=== PATIENT | female | born 1950 | race Caucasian/White ===

== ENCOUNTER 2019-06-05 09:27 | Emergency (ER) | payer MEDICARE, SELFPAY ==
[2019-06-05 09:44] VITALS: BP 125/65; PULSE 76; RESP 16; TEMP 36.7; O2SAT 100
--- NOTE | 2019-06-05 10:08 | ED.WOUNDLAC ---
HPI - Wound/Laceration General Chief Complaint: Wound/Laceration Stated Complaint: dog bite Time Seen by Provider: 06/05/19 10:18 Source: patient and RN notes reviewed Mode of arrival: ambulatory Limitations: no limitations History of Present Illness HPI narrative: 69-year-old female presents for concern for dog bite on her left hand. Reports her dog bit her hand yesterday when she took a bone out of its mouth. She reports he is up-to-date on his vaccinations. Reports she cleaned the wound and used a Steri-Strip on the wound for closure. She reports mild tenderness, redness surrounding the wound. She denies any decrease in sensation or function of her hand or fingers. She reports she is not up-to-date on her tetanus Extremity Location: Left: hand Related Data Allergies Allergy/AdvReac Type Severity Reaction Status Date / Time atropine Allergy Intermediate LOW BLOOD Verified 01/02/19 18:03 PRESSURE, ANXIETY aspirin Allergy Unknown Verified 10/14/17 15:12 nitrofurantoin Allergy Unknown Verified 10/14/17 15:12 NSAIDS (Non-Steroidal Allergy Unknown Verified 10/14/17 15:11 Anti-Inflamma phenazopyridine Allergy Unknown Verified 05/19/12 14:00 NITROFURANTOIN MACROCRYSTAL Allergy Severe Anaphylactic Uncoded 01/02/19 18:03 Shock Review of Systems Review of Systems: Narrative: CONSTITUTIONAL: Denies malaise, chills, sweats, or fever. CARDIOVASCULAR: Denies chest pain, palpitationsa. RESPIRATORY: Denies dyspnea. SKIN: Reports 2 puncture wounds to her left hand, excluding digits. Reports mild redness and swelling to the hand and foot digits 2 and 3 MUSCULOSKELETAL: Denies any decrease in sensation or function of the left hand NEUROLOGIC: Denies numbness, weakness All systems reviewed & are unremarkable except as noted in HPI and below PMFSH Past Medical History Medical History (Updated 06/05/19 @ 10:28 by Liza Roman NP) H/O nephrolithotomy with removal of calculi Hypertension Syncope Type 2 diabetes mellitus Family History Family History (Updated 10/16/17 @ 08:38 by DOCTOR UNKNOWN) Mother Hypertension Cerebrovascular accident Father Family history of Parkinson's disease Family history of coronary artery disease Social History Social History (Updated 02/04/19 @ 11:30 by Elizabeth L. Fore, RECRUITING INTERN) Smoking status: Never smoker Alcohol intake: current Drinks per week: 2 Substance use: never Comments At time of signature, agree with nursing past medical, surgical, social and family history. There is no relevant family history pertinent to the presenting complaint Exam Narrative: Exam Narrative: GENERAL: Well-appearing, well-nourished, and in no acute distress. HEAD: Normocephalic, atraumatic. EYES: PERRLA, conjunctivae clear NECK: Supple. CHEST: Speaks in full sentences. No respiratory distress. HEART: Regular rate and rhythm. Normal and equal peripheral pulses. EXTREMITIES: Left hand and digits of hand have normal strength and sensation. 5/5 strength with digit flexion, extension. Range of motion normal. No clubbing, cyanosis noted. Normal digital cascade with flexion of fingers, median, ulnar and radial nerve intact. Normal sensation of each side of finger. Can perform 'okay' sign, 'cross over finger test of index and middle fingers' and 'thumbs up' sign. No scissoring. Normal thumb opposition. Good capillary refill and radial pulse. Distal capillary refill <3 seconds. SKIN: Warm, dry, no rash. Mild erythema, edema without induration, tenderness noted to the palmar and dorsal aspect of the hand beneath digits 2 and 3 edema and erythema extend slightly into digits 1 2 and 3. 2 puncture wounds noted to the dorsal aspect of the hand NEURO: Alert and oriented x3. PSYCH: Normal mood and affect Course Course Emergency Course: Patient is aware of diagnosis, understands and agrees to treatment plan. Anticipatory guidance given. Patient agrees to follow-up as directed and is aware
[2019-06-05] MEDS: TETANUS,DIPHTHERIA,AC PERTUSSIS ADULT (0.5 ML) BOOSTRIX IM (10:27)
== END 2019-06-05 10:49 | disposition home or self-care (01) ==
PROVIDERS: Emergency Provider Nurse Practitioner; PCP Internal Medicine
DX: S61.452A Open bite of left hand, initial encounter (principal); W54.0XXA Bitten by dog, initial encounter; I10 Essential (primary) hypertension; E11.9 Type 2 diabetes mellitus without complications; Z23 Encounter for immunization; Z79.4 Long term (current) use of insulin; Z96.41 Presence of insulin pump (external) (internal)
CPT/HCPCS: 90471; 90715; 99213; G0463

== ENCOUNTER 2019-10-24 07:46 | Outpatient (CLI) | payer MEDICARE, SELFPAY ==
[2019-10-24 08:25] LABS: Cholesterol 225 mg/dL (0-200); HDL Direct 48 mg/dL; Triglycerides 162 mg/dL (<150)
[2019-10-24 08:36] LABS: LDL Cholesterol Direct 136 mg/dL
[2019-10-24 08:38] LABS: Hemoglobin A1C 6.3 % (<5.7)
== END 2019-10-24 07:47 | disposition home or self-care (01) ==
LOC: ANHLAB 07:49
PROVIDERS: PCP Internal Medicine; Visit Provider Nurse Practitioner
DX: E11.9 Type 2 diabetes mellitus without complications (principal)
CPT/HCPCS: 36415; 80061; 83036

== ENCOUNTER 2019-11-15 15:57 | Outpatient (CLI) | payer MEDICARE, SELFPAY ==
--- NOTE | ~2019-11-15 | XR_ITS ---
EXAMINATION: XR thoracic spine 3V EXAM DATE: 11/15/2019 16:26 INDICATION: Left mid back pain. TECHNIQUE: Frontal and lateral projections of the thoracic spine as well as lateral swimmers projecti on of the upper thoracic spine for interpretation. There is no prior study for comparison. FINDINGS: Suspect mild lumbar dextroscoliosis. The vertebral bodies are aligned in the AP dimension. Vertebral body and disc heights are well-maintained. No endplate erosive change. Minimal lower thora cic disc disease. There are cholecystectomy clips. IMPRESSION: Minimal lower thoracic disc disease. Reviewed, dictated and finalized at location A.
== END 2019-11-15 15:58 | disposition home or self-care (01) ==
PROVIDERS: PCP Internal Medicine; Visit Provider Nurse Practitioner
DX: M54.9 Dorsalgia, unspecified (principal)
CPT/HCPCS: 72072

== ENCOUNTER 2020-01-23 07:52 | Outpatient (CLI) | payer MEDICARE, SELFPAY ==
[2020-01-23 08:41] LABS: Anion Gap 7 mmol/L (8-16); Blood Urea Nitrogen 20 mg/dL (7-17); Calcium 9.9 mg/dL (8.4-10.2); Carbon Dioxide 32 mmol/L (22-30); Chloride 106 mmol/L (98-107); Cholesterol 259 mg/dL (0-200); Estimated Glomerular Filt Rate > 60; Glucose 107 mg/dL (65-105); HDL Direct 54 mg/dL; Potassium 4.2 mmol/L (3.4-5.0); Sodium 145 mmol/L (137-145); Triglycerides 143 mg/dL (<150)
[2020-01-23 08:46] LABS: Hemoglobin A1C 6.1 % (<5.7)
[2020-01-23 08:52] LABS: LDL Cholesterol Direct 162 mg/dL
== END 2020-01-23 07:53 | disposition home or self-care (01) ==
PROVIDERS: PCP Internal Medicine; Visit Provider Clinical Nurse Specialist
DX: E78.5 Hyperlipidemia, unspecified (principal); E11.9 Type 2 diabetes mellitus without complications
CPT/HCPCS: 36415; 80048; 80061; 83036

== ENCOUNTER 2020-04-23 08:25 | Outpatient (CLI) | payer MEDICARE, SELFPAY ==
[2020-04-23 08:47] LABS: Basophils Absolute Auto 0.1 K/mm3 (0.0-0.1); Basophils Percent Auto 1.1 % (0.2-1.2); Eosinophils Absolute Auto 0.2 K/mm3 (0-0.3); Eosinophils Percent Auto 2.9 % (0-4.4); Hematocrit 42.7 % (37.0-47.0); Hemoglobin 14.8 g/dL (12.0-15.0); Immature Granulocyte Absolute 0.01 K/mm3 (0.00-0.031); Immature Granulocyte Percent A 0.2 % (0-0.5); Lymphocytes Percent Auto 32.4 % (18.3-44.2); Mean Corpuscular HGB Conc 34.7 g/dl (32-36); Mean Corpuscular Hemoglobin 31.1 pg (26-34); Mean Corpuscular Volume 89.7 fl (80-100); Mean Platelet Volume 9.4 fl (7.4-10.4); Monocytes Absolute Auto 0.4 K/mm3 (0.1-0.6); Monocytes Percent Auto 7.8 % (2.6-8.5); Neutrophils Absolute Auto 2.9 K/mm3 (1.3-6.7); Neutrophils Percent Auto 55.6 % (45.5-73.1); Platelet Count Result 217 k/mm3 (150-375); Red Blood Count 4.76 M/mm3 (4.2-5.4); Red Cell Distribution Width 11.9 % (11.5-14.5); White Blood Count 5.3 K/mm3 (4.5-10.0)
[2020-04-23 08:54] LABS: Hemoglobin A1C 6.2 % (<5.7)
[2020-04-23 08:57] LABS: Alanine Aminotransferase 18 U/L (4-35); Albumin Level 4.2 g/dL (3.5-5.1); Alkaline Phosphatase 79 U/L (38-126); Anion Gap 1 mmol/L (8-16); Aspartate Amino Transferase 24 U/L (14-36); Bilirubin,Total 0.8 mg/dL (0.2-1.3); Blood Urea Nitrogen 18 mg/dL (7-17); Calcium 9.5 mg/dL (8.4-10.2); Carbon Dioxide 34 mmol/L (22-30); Chloride 105 mmol/L (98-107); Cholesterol 256 mg/dL (0-200); Estimated Glomerular Filt Rate > 60; Glucose 144 mg/dL (65-105); HDL Direct 54 mg/dL; Sodium 140 mmol/L (137-145); Triglycerides 205 mg/dL (<150)
[2020-04-23 09:08] LABS: LDL Cholesterol Direct 158 mg/dL
== END 2020-04-23 08:26 | disposition home or self-care (01) ==
PROVIDERS: PCP Internal Medicine; Visit Provider Nurse Practitioner
DX: E11.9 Type 2 diabetes mellitus without complications (principal); I10 Essential (primary) hypertension; E78.5 Hyperlipidemia, unspecified
CPT/HCPCS: 36415; 80053; 80061; 83036; 85025

== ENCOUNTER 2020-06-19 13:01 | Outpatient (CLI) | payer MEDICARE, SELFPAY ==
[2020-06-19 14:23] LABS: Add Urine Microscopic? YES; Appearance Urine Cloudy (Clear); Bacteria Urine Trace /hpf; Bilirubin Urine Negative (Negative); Blood Urine Negative (Negative); Color Urine Yellow (Yellow); Glucose Urine UA 1+ mg/dL (Negative); Ketones Urine Negative (Negative); Leukocyte Esterase Ur 2+ LEU/UL (Negative); Mucus Urine Rare /lpf; Nitrate Urine Negative (Negative); Protein Urine 1+ mg/dL (Negative); Specific Grav Ur 1.019 (1.001-1.035); Squamous Epithelial Cell Urine Many /hpf (Few); Urobilinogen Urine Negative mg/dL (<2.0)
== END 2020-06-19 13:02 | disposition home or self-care (01) ==
LOC: ANHLAB 13:06
PROVIDERS: PCP Internal Medicine; Visit Provider Nurse Practitioner
DX: N39.0 Urinary tract infection, site not specified (principal); R31.9 Hematuria, unspecified
CPT/HCPCS: 81001

== ENCOUNTER → 2020-07-16 03:04 | Outpatient (CLI) | payer MEDICARE, SELFPAY ==
[2020-07-16 19:42] LABS: SARS-CoV-2 RNA PCR Negative
== END ==
PROVIDERS: PCP Internal Medicine; Visit Provider Internal Medicine Gastroenterology
DX: Z01.812 Encounter for preprocedural laboratory examination (principal); Z20.822 Contact with and (suspected) exposure to COVID-19
CPT/HCPCS: C9803; U0003; U0005

== ENCOUNTER 2020-07-19 01:14 | Day surgery (SDC) | payer MEDICARE, SELFPAY ==
[2020-07-10 13:40] VITALS: BMI 23.9
[2020-07-19 09:16] VITALS: BP 167/84; PULSE 80; RESP 16; TEMP 36.7; O2SAT 100
[2020-07-19] MEDS: LACTATED RINGERS 1,000 ML 150 ML IV CONT (09:24)
[2020-07-19 09:33] LABS: Glucose Point of Care 160 (65-105)
--- NOTE | 2020-07-19 10:15 | P.PNAN_ITS ---
Anes - Initial Pre Proc Eval Procedure: Operation Date: 07/19/20 10:30 Proposed Procedures p Screening Colonoscopy - Varun Duke MD Date/Time: 07/19/20 10:15 Surgeon: Varun Duke MD Pre Op Diagnosis: hx of colon polyps Patient Data Age: 70 Gender: F Height: 5 ft 4 in Weight: 62.7 kg Last Vital Signs Temp 98.1 F 07/19/20 09:16 Pulse 80 07/19/20 09:16 Resp 16 07/19/20 09:16 BP 167/84 H 07/19/20 09:16 Pulse Ox 100 07/19/20 09:16 Allergies Allergy/AdvReac Type Severity Reaction Status Date / Time nitrofurantoin Allergy Severe Anaphylactic Verified 07/19/20 09:15 Shock atropine Allergy Intermediate LOW BLOOD Verified 07/19/20 09:15 PRESSURE, ANXIETY aspirin Allergy Unknown Anaphylactic Verified 07/19/20 09:15 Shock NSAIDS (Non-Steroidal Allergy Unknown Unknown Verified 07/19/20 09:15 Anti-Inflamma phenazopyridine Allergy Unknown Unknown Verified 07/19/20 09:15 Home Medications Medication Instructions Recorded Confirmed Type irbesartan 75 mg tablet 37.5 mg PO DAILY #90 tablet 01/25/20 07/19/20 Rx insulin aspart U-100 100 unit/mL See Rx Instructions SUBCUT 03/20/20 07/19/20 Rx subcutaneous solution USEASDIRECTD #7 vial MDD 100 Laboratory Tests 07/19/20 09:23 POC Capillary Glucose 160 mg/dl H mg/dl (65-105) Patient hx anesthesia problems: none Family hx anesthesia problems: none PMFSH Past Medical History Medical History (Updated 07/19/20 @ 10:06 by Donald Pyle MD) H/O nephrolithotomy with removal of calculi Hyperlipidemia Hypertension IDDM (insulin dependent diabetes mellitus) Syncope Family History Family History (Updated 10/16/17 @ 08:38 by DOCTOR UNKNOWN) Mother Hypertension Cerebrovascular accident Father Family history of Parkinson's disease Family history of coronary artery disease Social History Social History (Updated 02/04/19 @ 11:30 by Elizabeth Aguila CMA) Smoking status: Never smoker Alcohol intake: current Drinks per week: 5 Substance use: never Substance use type: does not use Living arrangements: [facility] Spiritual care concerns: No Anes - Eval Final PreProcedure Day of Procedure 07/19/20 10:15 Patient weight: normal Heart: regular rate and rhythm Lungs: clear to auscultation Airway: Mallampati scale class II Neurological: alert and oriented Last oral intake: >/= 8 hours ASA classification: III Emergent: no Anesthetic plan: proceed Anesthesia type and monitoring: general GIVS and standard monitoring Informed Consent: The patient's anesthetic plan and its attendant risks and benefits were discussed with the patient/family/POA. Questions were solicited and answers provided to the satisfaction of the patient/family/POA.
--- NOTE | 2020-07-19 10:16 | PM.HPGS ---
History of Present Illness History of Present Illness Consent: Risks, benefits, and alternatives have been discussed and questions answered. Patient agrees to proceed with procedure. Chief complaint: hx of colon polyps Narrative: Lorenza Acuña is a 70 year old female Here for colon cancer screening. She had multiple adenomatous polyps removed 3 years ago Review of Systems Review of Systems: All systems reviewed & are unremarkable except as noted in HPI and below PMFSH Past Medical History Medical History H/O nephrolithotomy with removal of calculi Hyperlipidemia Hypertension IDDM (insulin dependent diabetes mellitus) Syncope Family History Family History Mother Hypertension Cerebrovascular accident Father Family history of Parkinson's disease Family history of coronary artery disease Social History Social History Smoking status: Never smoker Alcohol intake: current Drinks per week: 5 Substance use: never Substance use type: does not use Living arrangements: [place] [facility] care concerns: No Meds Home Medications and Allergies Home Medications Medication Instructions Recorded Confirmed Type irbesartan 75 mg tablet 37.5 mg PO DAILY #90 tablet 01/25/20 07/19/20 Rx insulin aspart U-100 100 unit/mL See Rx Instructions SUBCUT 03/20/20 07/19/20 Rx subcutaneous solution USEASDIRECTD #7 vial MDD 100 Allergies Allergy/AdvReac Type Severity Reaction Status Date / Time nitrofurantoin Allergy Severe Anaphylactic Verified 07/19/20 09:15 Shock atropine Allergy Intermediate LOW BLOOD Verified 07/19/20 09:15 PRESSURE, ANXIETY aspirin Allergy Unknown Anaphylactic Verified 07/19/20 09:15 Shock NSAIDS (Non-Steroidal Allergy Unknown Unknown Verified 07/19/20 09:15 Anti-Inflamma phenazopyridine Allergy Unknown Unknown Verified 07/19/20 09:15 Vital Signs Vital Signs - 24 hr 07/19/20 09:16 Temperature 36.7 C Pulse Rate 80 Respiratory Rate 16 Blood Pressure 167/84 H Pulse Oximetry 100 Exam Resp: Auscultation: clear to auscultation bilaterally Cardio: Rate: regular rate Rhythm: regular rhythm GI: GI Palp: Yes Soft to palpation and No Tenderness to palpation present (GI) Assessment and Plan Assessment and plan (1) Colon cancer screening: Code(s): Z12.11 - Encounter for screening for malignant neoplasm of colon Status: Acute Assessment and Plan: Colonoscopy with possible biopsy or polypectomy or cautery or injection of substances.
[2020-07-19] MEDS: SIMETHICONE ORAL SUSPENSION 20 MG/0.3 ML 30 ML BOTTLE 0.6 ML IRRIGATION (10:40)
[2020-07-19 10:50] VITALS: BP 101/57; PULSE 77; RESP 17; O2SAT 97
[2020-07-19 11:00] VITALS: BP 107/63; PULSE 68; RESP 15; O2SAT 98
[2020-07-19 11:10] VITALS: BP 135/69; PULSE 66; RESP 17; O2SAT 98
[2020-07-19 11:26] LABS: Glucose Point of Care 117 (65-105)
== END 2020-07-19 11:12 | disposition home or self-care (01) ==
PROVIDERS: PCP Internal Medicine; Visit Provider Internal Medicine Gastroenterology
PROC: 0DJD8ZZ Inspection of Lower Intestinal Tract, Via Natural or Artificial Opening Endoscopic (ICD-10-PCS; CPT 45378; principal; 2020-07-19 10:30)
DX: Z12.11 Encounter for screening for malignant neoplasm of colon (principal); D12.4 Benign neoplasm of descending colon; K57.30 Diverticulosis of large intestine without perforation or abscess without bleeding; E11.9 Type 2 diabetes mellitus without complications; I10 Essential (primary) hypertension; E78.5 Hyperlipidemia, unspecified; Z79.4 Long term (current) use of insulin
CPT/HCPCS: 45385; 82948; 88305; J2704; J7120

== ENCOUNTER 2020-07-23 08:16 | Outpatient (CLI) | payer MEDICARE, SELFPAY ==
[2020-07-23 09:13] LABS: Cholesterol 258 mg/dL (0-200); HDL Direct 48 mg/dL; Triglycerides 284 mg/dL (<150)
[2020-07-23 09:23] LABS: LDL Cholesterol Direct 146 mg/dL
[2020-07-23 10:22] LABS: Hemoglobin A1C 6.1 % (<5.7)
== END 2020-07-23 08:17 | disposition home or self-care (01) ==
PROVIDERS: PCP Internal Medicine; Visit Provider Nurse Practitioner
DX: E78.5 Hyperlipidemia, unspecified (principal); E11.9 Type 2 diabetes mellitus without complications
CPT/HCPCS: 36415; 80061; 83036

== ENCOUNTER 2020-09-14 07:33 | Outpatient (CLI) | payer MEDICARE, SELFPAY ==
--- NOTE | ~2020-09-14 | US_ITS ---
US abdomen limited INDICATION: Right upper quadrant pain PROCEDURE: Realtime right upper abdominal ultrasound. COMPARISON: No prior studies for comparison. FINDINGS: The pancreas is normal without focal mass or pancreatic ductal dilation. Liver echotexture is normal without focal mass or intrahepatic biliary dilatation. There is normal directional flow i n the portal vein. Gallbladder is surgically absent. Common bile duct measures 3 mm. IMPRESSION: 1: Unremarkable limited abdominal ultrasound postcholecystectomy. Reviewed, dictated and finalized at location B.
== END 2020-09-14 07:34 | disposition home or self-care (01) ==
LOC: ANHIMG 07:34
PROVIDERS: PCP Internal Medicine; Visit Provider Nurse Practitioner
DX: R10.11 Right upper quadrant pain (principal)
CPT/HCPCS: 76705

== ENCOUNTER 2020-09-18 14:45 | Outpatient (CLI) | payer MEDICARE, SELFPAY ==
--- NOTE | ~2020-09-18 | CT_ITS ---
EXAMINATION: CT abdomen pelvis wo con DATE: 09/18/2020 15:52 INDICATION: Intermittent right lower quadrant abdominal pain for 6 months TECHNIQUE: Computed tomography (CT) of the abdomen and pelvis was performed without intravenous contr ast. Automated exposure control and iterative reconstruction technique were employed. Exam dose: 370 .73 mGy-cm total exam DLP. COMPARISON: 09/14/2020 Limited abdominal ultrasound 01/27/2019 CT abdomen pelvis FINDINGS: The lung bases are clear. Normal heart size. No pericardial or pleural effusion. Status post cholecystectomy. No bile duct or pancreatic duct dilatation. The liver, spleen, pancreas, and adrenal glands are unremarkable. There is a pinpoint nonobstructing upper pole right renal calculus. No other urinary tract calculus i s evident. No ureteral calculus or hydroureteronephrosis. There is atherosclerotic calcification of the abdominal aorta. No intraperitoneal or retroperitoneal or pelvic mass lesion or lymphadenopathy or ascites. Status post hysterectomy. The urinary bladder is unremarkable. Normal appendix. Diverticulosis of the colon; no CT evidence of diverticulitis. No bowel obstruction or intraperitoneal free air. Very small fat-containing umbilical hernia. No suspicious osteolytic or osteoblastic lesions. IMPRESSION: Pinpoint nonobstructing upper pole right renal calculus Status post hysterectomy Status post cholecystectomy Diverticulosis of the colon; no CT evidence of diverticulitis Reviewed, dictated and finalized at Location [facility]. Reviewed, dictated and finalized at location A.
== END 2020-09-18 14:46 | disposition home or self-care (01) ==
PROVIDERS: PCP Internal Medicine; Visit Provider Nurse Practitioner
DX: K57.30 Diverticulosis of large intestine without perforation or abscess without bleeding (principal); N20.0 Calculus of kidney; Z90.49 Acquired absence of other specified parts of digestive tract
CPT/HCPCS: 74176

== ENCOUNTER 2020-10-19 19:37 | Emergency (ER) | payer MEDICARE, SELFPAY ==
--- NOTE | 2020-10-19 20:13 | ED.GENADULT ---
HPI - General Adult General Chief complaint: Allergic Reaction Stated complaint: Allergic Reaction Time Seen by Provider: 10/19/20 19:41 History of Present Illness HPI narrative: Bunny patient 70-year-old female presents emerged part with chief complaint of urticaria. Patient reports in the last 24 hours she noticed that she started having hives that popped up initially on her lip but then subsequently started having urticaria on her chest abdominal wall and on her legs. Patient states that the hives have become confluent and reports that they are very itchy. The patient reports she feels maybe a little bit of shortness of breath with this reports that she had similar symptoms many years ago when she took an antibiotic. Related Data Allergies Allergy/AdvReac Type Severity Reaction Status Date / Time nitrofurantoin Allergy Severe Anaphylactic Verified 07/19/20 09:15 Shock atropine Allergy Intermediate LOW BLOOD Verified 07/19/20 09:15 PRESSURE, ANXIETY aspirin Allergy Unknown Anaphylactic Verified 07/19/20 09:15 Shock NSAIDS (Non-Steroidal Allergy Unknown Unknown Verified 07/19/20 09:15 Anti-Inflamma phenazopyridine Allergy Unknown Unknown Verified 07/19/20 09:15 Review of Systems Review of Systems: Narrative: A 10 system review of systems was completed on the patient and is negative except for what is stated in the HPI. Nursing and ancillary documentation was reviewed. PMFSH Past Medical History Medical History H/O nephrolithotomy with removal of calculi Hyperlipidemia Hypertension IDDM (insulin dependent diabetes mellitus) Syncope Surgical History Surgical History Hx of cholecystectomy Family History Family History Mother Hypertension Cerebrovascular accident Father Family history of Parkinson's disease Family history of coronary artery disease Social History Social History Smoking status: Never smoker Alcohol intake: current Drinks per week: 5 Substance use: never Substance use type: does not use Spiritual care concerns: No Exam Narrative: Exam Narrative: GENERAL: Well-appearing, well-nourished, and in no acute distress. HEAD: Normocephalic, atraumatic. EYES: PERRLA and EOMI. ENT: Nares clear, no rhinorrhea or epistaxis. Mucous membranes moist. NECK: Supple. CHEST: Clear to auscultation. No respiratory distress. HEART: Regular rate and rhythm. No murmur heard. Normal peripheral pulses. ABDOMEN: Soft, nontender, nondistended, normal active bowel sounds. EXTREMITIES: Normal range of motion. No edema. SKIN: Warm, dry, there is urticaria present on the abdominal wall, on the lower extremities. NEURO: No focal deficits. Alert and oriented x3. PSYCH: Normal mood and affect. Course Course Emergency Course: Patient is feeling much better at this time Vital Signs Vital signs: Vital Signs Temperature 36.6 C 10/19/20 20:14 Pulse Rate 85 10/19/20 20:14 Respiratory Rate 18 10/19/20 20:14 Blood Pressure 149/79 H 10/19/20 20:14 Pulse Oximetry 97 10/19/20 20:14 Temperature 36.6 C 10/19/20 20:14 Pulse Rate 85 10/19/20 20:14 Respiratory Rate 18 10/19/20 20:14 Blood Pressure 149/79 H 10/19/20 20:14 Pulse Oximetry 97 10/19/20 20:14 Medical Decision Making Vital Signs Vital Signs: Vital Signs Temperature 36.6 C 10/19/20 20:14 Pulse Rate 85 10/19/20 20:14 Respiratory Rate 18 10/19/20 20:14 Blood Pressure 149/79 H 10/19/20 20:14 Pulse Oximetry 97 10/19/20 20:14 Temperature 36.6 C 10/19/20 20:14 Pulse Rate 85 10/19/20 20:14 Respiratory Rate 18 10/19/20 20:14 Blood Pressure 149/79 H 10/19/20 20:14 Pulse Oximetry 97 10/19/20 20:14 Discharge Plan D
[2020-10-19 20:14] VITALS: BP 149/79; PULSE 85; RESP 18; TEMP 36.6; O2SAT 97
[2020-10-19] MEDS: FAMOTIDINE 20 MG/2 ML VIAL IV PUSH (20:19)
[2020-10-19] MEDS: diphenhydrAMINE HCl INJ 50 MG/ML VIAL IV PUSH (20:19)
[2020-10-19] MEDS: methylPREDNISolone SOD SUCC 125 MG VIAL IV PUSH (20:19)
[2020-10-19 21:29] VITALS: BP 125/58; PULSE 69; RESP 18; O2SAT 98
== END 2020-10-19 21:45 | disposition home or self-care (01) ==
PROVIDERS: Emergency Provider Emergency Medicine; PCP Internal Medicine
DX: T78.40XA Allergy, unspecified, initial encounter (principal); E78.5 Hyperlipidemia, unspecified; I10 Essential (primary) hypertension; E11.9 Type 2 diabetes mellitus without complications; Z87.442 Personal history of urinary calculi; Z79.4 Long term (current) use of insulin
CPT/HCPCS: 96374; 96375; 99284; J1200; J2930

== ENCOUNTER 2020-10-22 10:49 | Outpatient (CLI) | payer MEDICARE, SELFPAY ==
[2020-10-22 11:30] LABS: Cholesterol 308 mg/dL (0-200); HDL Direct 71 mg/dL; Triglycerides 170 mg/dL (<150)
[2020-10-22 11:43] LABS: LDL Cholesterol Direct 180 mg/dL
[2020-10-22 12:09] LABS: Hemoglobin A1C 6.5 % (<5.7)
== END 2020-10-22 10:50 | disposition home or self-care (01) ==
LOC: ANHLAB 10:52
PROVIDERS: PCP Internal Medicine; Visit Provider Nurse Practitioner
DX: E11.9 Type 2 diabetes mellitus without complications (principal); I10 Essential (primary) hypertension
CPT/HCPCS: 36415; 80061; 83036

== ENCOUNTER 2020-12-15 10:16 | Emergency (ER) | payer MEDICARE, SELFPAY ==
[2020-12-15 10:43] VITALS: BP 169/78; PULSE 79; RESP 16; TEMP 36.4; O2SAT 99
--- NOTE | 2020-12-15 10:50 | ED.FEMALEGU ---
HPI - Female Genitourinary General Chief complaint: Urogenital-Female Stated complaint: uti symptoms Source: patient and RN notes reviewed Limitations: no limitations History of Present Illness HPI Narrative: The patient, is on several meds including insulin, presents with urinary symptoms. Patient states she has a shorter, couple day history of urinary frequency, urgency and dysuria. No blood fever, low back pain, vomiting, vaginal discharge. Symptoms are mild worse with micturition Related Data Allergies Allergy/AdvReac Type Severity Reaction Status Date / Time nitrofurantoin Allergy Severe Anaphylactic Verified 12/15/20 10:44 Shock atropine Allergy Intermediate LOW BLOOD Verified 12/15/20 10:44 PRESSURE, ANXIETY aspirin Allergy Unknown Anaphylactic Verified 12/15/20 10:44 Shock NSAIDS (Non-Steroidal Allergy Unknown Unknown Verified 12/15/20 10:44 Anti-Inflamma phenazopyridine Allergy Unknown Unknown Verified 12/15/20 10:44 Review of Systems Review of Systems: General/Constitutional: No weight loss,fever Eyes: N0: Redness,discharge Ears/Nose/Throat: No: Epistaxis,ear discharge Respiratory: Denies: Hemoptysis Gastrointestinal: No Vomiting, Bleeding-rectal Skin: No Lumps, eruption Neurologic: No Focal Weakness,Sz Hematologic: Denies: Petechiae/Purpura Psychiatric: No: Suicida ideationl All Other Systems: Reviewed and Negative PMF Past Medical History Medical History H/O nephrolithotomy with removal of calculi Hyperlipidemia Hypertension IDDM (insulin dependent diabetes mellitus) Syncope Surgical History Surgical History Hx of cholecystectomy Family History Family History Mother Hypertension Cerebrovascular accident Father Family history of Parkinson's disease Family history of coronary artery disease Social History Social History Smoking status: Never smoker Alcohol intake: current Drinks per week: 5 Substance use: never Substance use type: does not use Spiritual care concerns: No Comments At time of signature, agree with nursing past medical, surgical, social and family history. There is no relevant family history pertinent to the presenting complaint Exam Narrative: General Appearance: Well appearing, No distress EYE: PERRLA, Conjunctiva clear Ears: External ear normal Nose: Normal nose Mouth/Throat: Normal appearing, Normal lips Neck: Supple Respiratory: Airway patent, No respiratory distress Cardiovascular: RRR Abdomen: Soft, Non-tender, Musculoskeletal: Full ROM Skin: Warm, Dry Neurological: A&O x3, CN II-X intact Psychiatric: Normal mood, Normal affect Course Vital Signs Vital signs: Vital Signs Temperature 97.6 F 12/15/20 10:43 Pulse Rate 79 12/15/20 10:43 Respiratory Rate 16 12/15/20 10:43 Blood Pressure 169/78 H 12/15/20 10:43 Pulse Oximetry 99 12/15/20 10:43 Temperature 97.6 F 12/15/20 10:43 Pulse Rate 79 12/15/20 10:43 Respiratory Rate 16 12/15/20 10:43 Blood Pressure 169/78 H 12/15/20 10:43 Pulse Oximetry 99 12/15/20 10:43 MDM - Female Genitourinary Lab Data Labs: Urine Glucose Negative Reference Range: Negative Urine Bilirubin Negative Reference Range: Negative Urine Ketone Negative Reference Range: Negative Urine Specific [place] 1.025 Reference Range:1.001-1.035 Urine Blood Trace Reference Range: Negativ
== END 2020-12-15 11:01 | disposition home or self-care (01) ==
PROVIDERS: Emergency Provider Emergency Medicine; PCP Internal Medicine
DX: N30.00 Acute cystitis without hematuria (principal); E78.5 Hyperlipidemia, unspecified; I10 Essential (primary) hypertension; E11.9 Type 2 diabetes mellitus without complications; Z79.4 Long term (current) use of insulin
CPT/HCPCS: 81003; 87077; 87086; 87186; 99213; G0463

== ENCOUNTER 2021-01-23 07:02 | Outpatient (CLI) | payer MEDICARE, SELFPAY ==
[2021-01-23 07:54] LABS: Basophils Absolute Auto 0.1 K/mm3 (0.0-0.1); Basophils Percent Auto 1.3 % (0.2-1.2); Eosinophils Absolute Auto 0.2 K/mm3 (0-0.3); Eosinophils Percent Auto 2.4 % (0-4.4); Hemoglobin 14.7 g/dL (12.0-15.0); Immature Granulocyte Absolute 0.01 K/mm3 (0.00-0.031); Immature Granulocyte Percent A 0.2 % (0-0.5); Lymphocytes Percent Auto 33.7 % (18.3-44.2); Mean Corpuscular HGB Conc 34.2 g/dl (32-36); Mean Corpuscular Hemoglobin 31.7 pg (26-34); Mean Corpuscular Volume 92.7 fl (80-100); Mean Platelet Volume 9.6 fl (7.4-10.4); Monocytes Absolute Auto 0.5 K/mm3 (0.1-0.6); Monocytes Percent Auto 8.3 % (2.6-8.5); Neutrophils Absolute Auto 3.4 K/mm3 (1.3-6.7); Neutrophils Percent Auto 54.1 % (45.5-73.1); Platelet Count Result 238 k/mm3 (150-375); Red Blood Count 4.64 M/mm3 (4.2-5.4); Red Cell Distribution Width 11.8 % (11.5-14.5); White Blood Count 6.2 K/mm3 (4.5-10.0)
[2021-01-23 08:04] LABS: Anion Gap 6 mmol/L (8-16); Blood Urea Nitrogen 17 mg/dL (7-17); Calcium 9.7 mg/dL (8.4-10.2); Carbon Dioxide 29 mmol/L (22-30); Chloride 105 mmol/L (98-107); Cholesterol 284 mg/dL (0-200); Estimated Glomerular Filt Rate > 60; Glucose 175 mg/dL (65-110); HDL Direct 50 mg/dL; Potassium 4.3 mmol/L (3.4-5.0); Sodium 140 mmol/L (137-145); Triglycerides 202 mg/dL (<150)
[2021-01-23 08:10] LABS: Hemoglobin A1C 6.1 % (<5.7)
[2021-01-23 08:15] LABS: LDL Cholesterol Direct 168 mg/dL
[2021-01-23 12:41] LABS: Creatinine Urine 106.6 mg/dL
[2021-01-23 13:04] LABS: MALB Creatinine Ratio < 5.6 mg/g (0-30); Microalbumin Urine Random < 6.0 mg/L (0-16.7)
== END 2021-01-23 07:03 | disposition home or self-care (01) ==
LOC: ANHLAB 07:07
PROVIDERS: PCP Internal Medicine; Visit Provider Nurse Practitioner
DX: E11.9 Type 2 diabetes mellitus without complications (principal); R00.0 Tachycardia, unspecified
CPT/HCPCS: 36415; 80048; 80061; 82043; 83036; 84443; 85025

== ENCOUNTER 2021-04-26 07:51 | Outpatient (CLI) | payer MEDICARE, SELFPAY ==
[2021-04-26 09:36] LABS: Hemoglobin A1C 6.3 % (<5.7)
== END 2021-04-26 07:52 | disposition home or self-care (01) ==
LOC: ANHLAB 07:53
PROVIDERS: PCP Internal Medicine; Visit Provider Nurse Practitioner
DX: E11.9 Type 2 diabetes mellitus without complications (principal)
CPT/HCPCS: 36415; 83036

== ENCOUNTER 2021-07-30 07:14 | Outpatient (CLI) | payer MEDICARE, SELFPAY ==
[2021-07-30 07:56] LABS: Cholesterol 227 mg/dL (0-200); HDL Direct 53 mg/dL; Triglycerides 142 mg/dL (<150)
[2021-07-30 08:07] LABS: LDL Cholesterol Direct 125 mg/dL
[2021-08-01 09:42] LABS: Anion Gap 5 mmol/L (8-16); Blood Urea Nitrogen 19 mg/dL (7-17); Carbon Dioxide 30 mmol/L (22-30); Chloride 107 mmol/L (98-107); Potassium 3.9 mmol/L (3.4-5.0); Sodium 142 mmol/L (137-145)
[2021-08-01 09:43] LABS: Calcium 8.9 mg/dL (8.4-10.2); Estimated Glomerular Filt Rate > 60; Glucose 89 mg/dL (65-110)
== END 2021-07-30 07:15 | disposition home or self-care (01) ==
LOC: ANHLAB 07:19
PROVIDERS: PCP Internal Medicine; Visit Provider Nurse Practitioner
DX: E11.9 Type 2 diabetes mellitus without complications (principal); I10 Essential (primary) hypertension
CPT/HCPCS: 36415; 80048; 80061

== ENCOUNTER 2021-08-06 07:53 | Outpatient (CLI) | payer MEDICARE, SELFPAY ==
[2021-08-06 08:23] LABS: Hemoglobin A1C 6.1 % (<5.7)
== END 2021-08-06 07:54 | disposition home or self-care (01) ==
LOC: ANHLAB 07:56
PROVIDERS: PCP Internal Medicine; Visit Provider Nurse Practitioner
DX: E11.9 Type 2 diabetes mellitus without complications (principal)
CPT/HCPCS: 36415; 83036

== ENCOUNTER 2021-08-17 10:04 | Observation (INO) | payer MEDICARE, SELFPAY ==
[2021-08-17] VITALS (41 sets, daily range): BP systolic 118–175; BP diastolic 64–107; PULSE 66–94; RESP 13–29; TEMP 36.4–37.2; O2SAT 86–100
--- NOTE | ~2021-08-17 | MR_ITS ---
EXAMINATION: MR cervical spine wo con DATE: 08/18/2021 09:39 INDICATION: Left neck shoulder and elbow pain. TECHNIQUE: Magnetic resonance imaging (MRI) of the cervical spine was performed without intravenous c ontrast. Sequences included sagittal T2-weighted FSE, sagittal T2-weighted FS FSE, sagittal T1-weight ed FSE, axial MERGE, and axial T2-weighted FSE. COMPARISON: CT cervical spine 08/17/2021. FINDINGS: Craniocervical association and atlantoaxial joint are intact. Normal alignment. Vertebral b alayna heights are maintained. Multilevel degenerative disc disease, severe at C3-4 and moderate at C5-6 . The cord signal is normal. The following disc levels are specifically discussed: C2-C3: The disc does not extend beyond the endplate margin. There is mild uncovertebral joint osteoar thritis. There is mild facet joint osteoarthritis. There is no neural foraminal stenosis. There is no central canal stenosis. C3-C4: 2 mm broad-based left paracentral protrusion. There is moderate left and mild right uncoverteb ral joint osteoarthritis. There is moderate left and mild right facet joint osteoarthritis. There is severe left neural foraminal stenosis. There is no central canal stenosis. C4-C5: Mild diffuse bulge. There is no uncovertebral joint osteoarthritis. There is mild facet joint osteoarthritis. There is no neural foraminal stenosis. There is no central canal stenosis. C5-C6: Moderate diffuse bulge with right paracentral prominence. There is moderate uncovertebral join t osteoarthritis. There is moderate facet joint osteoarthritis. There is moderate bilateral neural fo raminal stenosis. There is no central canal stenosis. C6-C7: Moderate diffuse bulge with a 4 mm central extrusion that contacts the anterior surface of the cord, extending 10 mm inferiorly along the posterior aspect of the C7 vertebral body. There is mild uncovertebral joint osteoarthritis. There is moderate left and mild right facet joint osteoarthritis. There is no neural foraminal stenosis. There is mild central canal stenosis. C7-T1: The disc does not extend beyond the endplate margin. There is mild uncovertebral joint osteoar thritis. There is mild facet joint osteoarthritis. There is no neural foraminal stenosis. There is no central canal stenosis. IMPRESSION: 1. 4 x 10 mm C6-7 disc extrusion which contacts the anterior surface of the cord. 2. Severe left C3-4 neural foraminal stenosis. Moderate bilateral C5-6 and left-sided C3-4 and C6-7 n eural foraminal narrowing. 3. Multilevel degenerative disc disease, degenerative uncovertebral joint changes, and facet arthropa thy. Reviewed, dictated and finalized at location K. IMPRESSION: 1. 4 x 10 mm C6-7 disc extrusion which contacts the anterior surface of the cor d. 2. Severe left C3-4 neural foraminal stenosis. Moderate bilateral C5-6 and left -sided C3-4 and C6-7 neural foraminal narrowing. 3. Multilevel degenerative disc disease, degenerative uncovertebral joint sands es, and facet arthropathy.
--- NOTE | ~2021-08-17 | CT_ITS ---
EXAMINATION: CT cervical spine wo con DATE: 08/17/2021 11:51 INDICATION: Left posterior neck pain. Left arm and shoulder tingling. TECHNIQUE: Computed tomography (CT) of the cervical spine was performed without intravenous contrast. Automated exposure control and iterative reconstruction technique were employed. Exam dose: 165.84 mGy-cm total exam DLP. COMPARISON: None FINDINGS: There is mild reversal cervical curvature. There is mild dextroscoliosis. C1 and C2 are normally aligned and the odontoid process is intact. Moderately severe degenerative disc disease at C3-4 and C5-6.. There is degenerative change at the apophyseal and uncovertebral joint, the uncovertebral joint spurr ing, the uncovertebral joint spurring most prominent on the left at C3-4 and C5-6. No fracture or dislocation or locked facet or prevertebral soft tissue swelling. IMPRESSION: Cervical spondylosis Reviewed, dictated and finalized at [facility]. Reviewed, dictated and finalized at location A. IMPRESSION: Cervical spondylosis
--- NOTE | ~2021-08-17 | XR_ITS ---
XR chest 2V DATE: 08/17/2021 10:21 INDICATION: Intermittent left-sided chest pain for one week, radiating to arm TECHNIQUE: PA and lateral views COMPARISON: 01/02/2019 AP and lateral chest FINDINGS: Normal heart size. Aortic arch calcification. No hilar or mediastinal enlargement. No pulmonary infiltrate or consolidation, pleural effusion or pulmonary vascular congestion or pneumo thorax. Thoracic and lumbar scoliosis. Diffuse osteopenia. Status post cholecystectomy. IMPRESSION: No active cardiopulmonary disease Aortic atherosclerosis Status post cholecystectomy Reviewed, dictated and finalized at location A.
--- NOTE | 2021-08-17 10:05 | ECG_ITS ---
Measurements Intervals [place] Rate: 90 P: 52 CO: 151 QRS: -14 QRSD: 101 T: 82 QT: 345 QTc: 422 Interpretive Statements SINUS RHYTHM VENTRICULAR PREMATURE COMPLEX POSSIBLE LEFT ATRIAL ENLARGEMENT DELAYED PRECORDIAL R/S TRANSITION INFERIOR INFARCT, AGE INDETERMINATE NONSPECIFIC T-WAVE ABNORMALITY- HIGH LATERAL LEADS BORDERLINE ECG Electronically Signed On 08-17-2021 15:05:59 CDT by Roni Sanz D.O.
[2021-08-17 10:42] LABS: Basophils Absolute Auto 0.1 K/mm3 (0.0-0.1); Basophils Percent Auto 1.1 % (0.2-1.2); Eosinophils Absolute Auto 0.1 K/mm3 (0-0.3); Eosinophils Percent Auto 2.3 % (0-4.4); Hematocrit 43.5 % (37.0-47.0); Immature Granulocyte Absolute 0.02 K/mm3 (0.00-0.031); Immature Granulocyte Percent A 0.3 % (0-0.5); Lymphocytes Absolute Auto 1.36 K/mm3 (0.9-3.2); Lymphocytes Percent Auto 21.9 % (18.3-44.2); Mean Corpuscular HGB Conc 34.5 g/dl (32-36); Mean Corpuscular Hemoglobin 32.1 pg (26-34); Mean Corpuscular Volume 92.9 fl (80-100); Mean Platelet Volume 9.5 fl (7.4-10.4); Monocytes Absolute Auto 0.6 K/mm3 (0.1-0.6); Monocytes Percent Auto 10.1 % (2.6-8.5); Neutrophils Percent Auto 64.3 % (45.5-73.1); Platelet Count Result 202 k/mm3 (150-375); Red Blood Count 4.68 M/mm3 (4.2-5.4); White Blood Count 6.2 K/mm3 (4.5-10.0)
[2021-08-17 10:53] LABS: Alanine Aminotransferase 23 U/L (6-35); Albumin Level 4.9 g/dL (3.5-5.1); Alkaline Phosphatase 97 U/L (38-126); Anion Gap 7 mmol/L (8-16); Aspartate Amino Transferase 27 U/L (14-36); Bilirubin,Total 1.1 mg/dL (0.2-1.3); Blood Urea Nitrogen 16 mg/dL (7-17); Calcium 9.6 mg/dL (8.4-10.2); Carbon Dioxide 28 mmol/L (22-30); Chloride 106 mmol/L (98-107); Estimated CRCL calculation 48 ml/min; Estimated Glomerular Filt Rate > 60; Glucose 210 mg/dL (65-110); Lipase 109 U/L (23-300); Potassium 4.3 mmol/L (3.4-5.0); Sodium 141 mmol/L (137-145)
[2021-08-17 10:56] LABS: Prothrombin Time 12.4 Seconds (11.1-14.7)
[2021-08-17 10:57] LABS: Partial Thromboplastin Time 30.1 SECONDS (22.3-36.8)
[2021-08-17 11:04] LABS: Troponin I < 0.012 ng/mL (0.000-0.034)
--- NOTE | 2021-08-17 11:17 | ED.CHESTPAIN ---
HPI - Chest Pain General Chief Complaint: Chest Pain Stated Complaint: chest pain Time Seen by Provider: 08/17/21 11:06 History of Present Illness HPI narrative: pt says for the last week left arm tingling adn pain starting around elbow up to neck with some neck pain no cp/sob but says has to take a deep breath at times with it and has at rest no nv and sweating at night but wiht her menopause had before this, last stresstest yrs ago Risk Factors Coronary artery disease risk factors: diabetes, hyperlipidemia and hypertension Related Data Allergies Allergy/AdvReac Type Severity Reaction Status Date / Time nitrofurantoin Allergy Severe Anaphylactic Verified 08/17/21 11:14 Shock atropine Allergy Intermediate LOW BLOOD Verified 08/17/21 11:14 PRESSURE, ANXIETY aspirin Allergy Unknown Anaphylactic Verified 08/17/21 11:14 Shock NSAIDS (Non-Steroidal Allergy Unknown Unknown Verified 08/17/21 11:14 Anti-Inflamma phenazopyridine Allergy Unknown Unknown Verified 08/17/21 11:14 Review of Systems Review of Systems: CONSTITUTIONAL: Denies fever, chills, or sweats. EYES: Denies visual changes, redness, or discharge. ENT: Denies rhinorrhea, congestion, sore throat, or otalgia. CARDIOVASCULAR: Denies chest pain, palpitations, or edema. RESPIRATORY: Denies cough or dyspnea. GASTROINTESTINAL: Denies abdominal pain, nausea, vomiting, or diarrhea. GENITOURINARY: Denies dysuria or hematuria. SKIN: Denies rash or itching. MUSCULOSKELETAL: Denies back pain, but has left arm tingling and discomfort neck pain NEUROLOGIC: Denies headache, numbness, or weakness. PSYCHIATRIC: Denies anxiety or depression. [facility] Past Medical History Medical History H/O nephrolithotomy with removal of calculi Hyperlipidemia Hypertension IDDM (insulin dependent diabetes mellitus) Syncope Surgical History Surgical History Hx of cholecystectomy Family History Family History Mother Hypertension Cerebrovascular accident Father Family history of Parkinson's disease Family history of coronary artery disease Social History Social History Social History: caffeine-1/2 daily Smoking status: Never smoker Alcohol intake: current Drinks per week: 5 Alcohol use details: hard drinks Substance use: never Substance use type: does not use Spiritual care concerns: No Exam Narrative: APPEARANCE: Well appearing, no pain in distress, well-nourished. Head normocephalic atraumtaic. EYES: PERRLA/EOMI, conjunctivae very clear. NOSE: Normal no drainage EARS:TMS clear Angelia Ramsey, with good light reflex. THROAT: Pharynx clear, no exudate. NECK: Supple. No adenopathy, no masses. RESPIRATORY: Airway patent, repsirations nonlabored. Clear to auscultation bilaterally, no rales, rhonchi, wheezing. CARDIOVASCULAR: Regular rate and rhythm without murmurs rubs or gallops. ABDOMINAL: Soft, nontender, nondistended, no hepatosplenomegally MUSCULOSKELETAl: Moves all extremities. Strenght/ROM intact, No edema, No calf tenderness. NEURO: Alert. Cranial nerves II through XII intact. Good gait. Good coordination no left arm neuro/vascular changes with rom no swelling and cannot reproduce symptoms with rom/palpatin neck as well SKIN:: Warm, dry. Normal Color PSYCHIATRIC: Normal affect/mood, normal interaction with parents. Course Course Emergency Course: updated pt at 1229 pt agrees to stay aware of risks adn heart score calling hospital[facility] for admission Vital Signs Vital signs: Vital Signs Temperature 36.4 C 08/17/21 10:29 Pulse Rate 92 08/17/21 10:29 Respiratory Rate 16 08/17/21 10:29 Blood Pressure 152/68 H 08/17/21 10:29 Pulse Oximetry 99 08/17/21 10:29 Temperature 36.4 C 08/17/21 10:29 Pulse Rate 82 08/17/21 11
[2021-08-17 12:36] LABS: Glucose Point of Care 119 mg/dl (65-105)
[2021-08-17] MEDS: MORPHINE SULFATE (*CRX) 4 MG/ML INJ 2 MG IV PUSH (13:00)
[2021-08-17 13:05] LABS: Troponin I < 0.012 ng/mL (0.000-0.034)
--- NOTE | 2021-08-17 16:00 | PM.IMHP ---
H&P: HPI History of Present Illness Date/Time: 08/17/21 16:00 Chief Complaint: Left arm pain. Narrative: This is a very pleasant 71-year-old female with insulin-dependent diabetes, hypertension, and dyslipidemia who presented to the ED from home for evaluation of left arm pain. Over the last couple of weeks she has developed an intermittent ?prickling? pain which seems to start in the left elbow. Many times the pain radiates to the left shoulder and somewhat to the left side of the neck. It seems to be worse at night and it has been self-limiting however it has been occurring more often and lasting longer over the past 1 week. She lies on her right side when sleeping and she does not believe that her left arm is crooked or impinged while asleep. She is unaware of any significant aggravating factors. She denies history of neuropathy and she has cannot recall any recent injuries that may have caused the symptoms. She denies numbness in the left arm and the prickling pain does not extend past the proximal forearm. She is quite active (walks frequently with her friends, enjoys water volleyball) and she has never had exertional chest pain or shortness of breath. It is my understanding that an EKG and troponins were ordered due to concerns for an atypical presentation for acute coronary syndrome and we were asked to admit her in this setting. She has no known history of coronary artery disease. A cardiac catheterization done many years ago was unremarkable, per patient report. Review of Systems Review of Systems: Twelve systems were reviewed. No syncope or presyncope. No cold or flu symptoms. She denies chest pain, pleuritic pain, palpitations, orthopnea, paroxysmal nocturnal dyspnea, and edema. No nausea or vomiting. Doses typically between 80 and 110. Denies nephropathy, neuropathy, and retinopathy. Recently she has been having more frequent hot flashes which come on suddenly and dissipate just as quickly. She has not been started on any new medications. Weight has remained stable. No history of malignancy Or thyroid disease. Except as documented, all other systems were reviewed and are negative. [facility] Past Medical History Medical History (Updated 08/17/21 @ 21:57 by Gita Lima PA-C) Depression Hyperlipidemia Hypertension Insulin dependent type 2 diabetes mellitus Kidney stones Shingles Squamous cell carcinoma skin of arm Syncope Surgical History Surgical History (Updated 08/17/21 @ 21:45 by Gita Lima PA-C) History of 3 sections History of abdominoplasty History of benign breast biopsy History of cardiac catheterization (2014) Unremarkable per patient report. History of cataract extraction with lens replacement History of cholecystectomy History of cystoscopy History of hysterectomy History of nephrolithotomy with removal of calculi History of removal of ureteral stent History of squamous cell carcinoma excision Neck. History of tonsillectomy Status post trigger finger release Family History Family History Mother Hypertension Cerebrovascular accident Father Family history of Parkinson's disease Family history of coronary artery disease Social History Social History (Updated 08/17/21 @ 21:46 by Gita Lima PA-C) Social History: Surrogate decision maker: Amaya Acuña, daughter. Code status: Full code. Smoking status: Never smoker Second hand tobacco smoke exposure: No Alcohol intake: current Drinks per week: 5 Alcohol use details: Mixed drinks or wine. Substance use: never Substance use type: does not use Additional living arrangements comments: . Three children. Independent living at [place]. 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 Spiritual care concerns: No Meds Home Medications and Allergies Home Medications Medication Instructions Recorde
--- NOTE | 2021-08-17 16:06 | ADMGEN ---
This patient, Lorenza Acuña, was admitted to IMU Room 209-01 at 1550. Patient/family oriented to hospital policies and general routines including ID bracelet, bed and alarms, visiting hours, pain management, procedures, bathroom and other care routines, personal items, smoking policy, room service/diet, and visiting hours. Information on how to activate the Rapid Response Team has been discussed. Patient/Family are encouraged to report perceived risks to care and to ask questions if they do not understand what they are told or what they should do.
[2021-08-17 16:16] LABS: Glucose Point of Care 81 mg/dl (65-105)
[2021-08-17 16:31] LABS: Troponin I < 0.012 ng/mL (0.000-0.034)
[2021-08-17] MEDS: ACETAMINOPHEN 325 MG TABLET 650 MG PO (20:00)
[2021-08-17 21:09] LABS: Glucose Point of Care 148 mg/dl (65-105)
--- NOTE | 2021-08-17 22:43 | PC.NURSE ---
Call placed and message left for Project Architect. Patient states she will turn insulin pump off at this time due to not having all of her supplies available.
[2021-08-18] VITALS: BP 141/71; PULSE 79; PULSE 83; RESP 14; TEMP 36.2; O2SAT 98
[2021-08-18 02:00] VITALS: PULSE 78
[2021-08-18] MEDS: ACETAMINOPHEN 325 MG TABLET 650 MG PO (02:40)
[2021-08-18 04:00] VITALS: BP 143/74; PULSE 74; PULSE 83; RESP 12; TEMP 36.9; O2SAT 97
[2021-08-18 05:50] LABS: Hemoglobin A1C 6.1 % (<5.7)
[2021-08-18 05:52] LABS: Anion Gap 4 mmol/L (8-16); Blood Urea Nitrogen 16 mg/dL (7-17); Carbon Dioxide 28 mmol/L (22-30); Chloride 103 mmol/L (98-107); Estimated CRCL calculation 48 ml/min; Estimated Glomerular Filt Rate > 60; Glucose 239 mg/dL (65-110); Magnesium 2.1 mg/dL (1.6-2.3); Potassium 4.7 mmol/L (3.4-5.0); Sodium 135 mmol/L (137-145)
[2021-08-18 06:00] VITALS: PULSE 71
--- NOTE | 2021-08-18 06:49 | PM.IMPN ---
Progress Note: A&P Assessment and Plan (1) Shingles: Qualifiers: Herpes zoster complications: without complications Qualified Code(s): B02.9 - Zoster without complications Code(s): B02.9 - Zoster without complications Status: Acute Assessment and Plan: Exam shows herpetiform vesicular rash extending from the neck to the left forearm. She states the rash has been there for 1-2 days, and has been spreading since she was admitted here. Patient endorses significant burning sensation. She states the pain started about 2 weeks ago, on and off. Pt also reports history of shingles without rash six months prior. She was not treated at the time. Valacyclovir 100mg TID x 7 days Gabapentin 300mg PO today, 300 PO BID tomorrow, 300 PO TID on the third day Will discharge patient with both of these prescriptions. Follow up with primary care in 1-2 weeks after discharge or if symptoms worsen. (2) Abnormal EKG: Code(s): R94.31 - Abnormal electrocardiogram [ECG] [EKG] Status: Acute Assessment and Plan: Patient chest pain free. Patient was admitted for concern of atypical cardiac pain.Serial troponin negative. eKG showed nonspecific T-wave abnormalities in high lateral leads, age-indeterminate inferior infarct. Chest x-ray showed no active cardiopulmonary disease, aortic atherosclerosis, status post cholecystectomy. Chest pain workup was performed. Risk factors for CAD include diabetes, hypertension, hyperlipidemia Echocardiogram can be performed as outpatient. (3) Left arm pain: Code(s): M79.602 - Pain in left arm Status: Acute Assessment and Plan: Patient reports intermittent pain in the left elbow which radiates to the shoulder and sometimes the neck. Consider cervical radiculopathy versus other nerve impingement verses neuropathy. CT cervical spine showed cervical spondylosis with uncovertebral joint spurring most prominent on the left at C3-4 at C5-6. No fracture or dislocation or soft tissue swelling. Cervical spine MRI ordered (4) Insulin dependent type 2 diabetes mellitus: Code(s): E11.9 - Type 2 diabetes mellitus without complications; Z79.4 - long-term (current) use of insulin Status: Acute Assessment and Plan: A1c 6.1 continue basal insulin per pump. Initiate Accu-Cheks and hypoglycemic protocol. (5) Hypertension: Qualifiers: Hypertension type: essential hypertension Qualified Code(s): I10 - Essential (primary) hypertension Code(s): I10 - Essential (primary) hypertension Status: Acute Assessment and Plan: Blood pressures were reviewed and they are reasonable. Continue antihypertensives and monitor. (6) Hyperlipidemia: Qualifiers: Hyperlipidemia type: unspecified Qualified Code(s): E78.5 - Hyperlipidemia, unspecified Code(s): E78.5 - Hyperlipidemia, unspecified Status: Acute Assessment and Plan: Continue simvastatin; LFTs within normal limits. Subjective Date/time seen: 08/18/21 06:49 Interval history: his is a very pleasant 71-year-old female with insulin-dependent diabetes, hypertension, and dyslipidemia who presented to the ED from home for evaluation of left arm pain. Patient denies chest pain, shortness of breath, but does show me a rash present from her neck to her forearm that is getting worse during her stay here. Rash is a herpetiform vesicular rash extending from the neck to the left forearm. She states the rash has been there for 1-2 days, and has been spreading since she was admitted here. Patient endorses significant burning sensation. She states the pain started about 2 weeks ago, on and off. Pt also reports history of shingles without rash six months prior. She was not treated at the time. Discussed CT results of the neck with patient. Patient acknowledged understanding. Review of Systems Review of Systems: All systems reviewed
[2021-08-18 07:22] LABS: Glucose Point of Care 195 mg/dl (65-105)
[2021-08-18 08:00] VITALS: BP 139/52; PULSE 72; RESP 20; TEMP 36.8; O2SAT 95
[2021-08-18] MEDS: ENOXAPARIN 40 MG/0.4 ML SYRINGE SUB-Q (08:37)
[2021-08-18] MEDS: PARoxetine 10 MG TABLET PO (08:37)
--- NOTE | 2021-08-18 09:22 | PM.DS ---
DS: Admitting Diagnosis Discharge Date 08/18/2021 0900 Admitting Diagnosis Left arm pain DS: Discharge Diagnosis Discharge Diagnosis (1) Shingles: Qualifiers: Herpes zoster complications: without complications Qualified Code(s): B02.9 - Zoster without complications Code(s): B02.9 - Zoster without complications Status: Acute Assessment and Plan: Exam shows herpetiform vesicular rash extending from the neck to the left forearm. She states the rash has been there for 1-2 days, and has been spreading since she was admitted here. Patient endorses significant burning sensation. She states the pain started about 2 weeks ago, on and off. Pt also reports history of shingles without rash six months prior. She was not treated at the time. Valacyclovir 100mg TID x 7 days Gabapentin 300mg PO today, 300 PO BID tomorrow, 300 PO TID on the third day Will discharge patient with both of these prescriptions. Follow up with primary care in 1-2 weeks after discharge or if symptoms worsen. (2) Abnormal EKG: Code(s): R94.31 - Abnormal electrocardiogram [ECG] [EKG] Status: Acute Assessment and Plan: Patient chest pain free. Patient was admitted for concern of atypical cardiac pain.Serial troponin negative. eKG showed nonspecific T-wave abnormalities in high lateral leads, age-indeterminate inferior infarct. Chest x-ray showed no active cardiopulmonary disease, aortic atherosclerosis, status post cholecystectomy. Chest pain workup was performed. Risk factors for CAD include diabetes, hypertension, hyperlipidemia Echocardiogram can be performed as outpatient. (3) Left arm pain: Code(s): M79.602 - Pain in left arm Status: Acute Assessment and Plan: Patient reports intermittent pain in the left elbow which radiates to the shoulder and sometimes the neck. Consider cervical radiculopathy versus other nerve impingement verses neuropathy. CT cervical spine showed cervical spondylosis with uncovertebral joint spurring most prominent on the left at C3-4 at C5-6. No fracture or dislocation or soft tissue swelling. Cervical spine MRI was performed prior to the patient's discharge. Follow up with C-spine MRI results. (4) Insulin dependent type 2 diabetes mellitus: Code(s): E11.9 - Type 2 diabetes mellitus without complications; Z79.4 - medical terminologist (current) use of insulin Status: Acute Assessment and Plan: A1c 6.1 continue basal insulin per pump. (5) Hypertension: Qualifiers: Hypertension type: essential hypertension Qualified Code(s): I10 - Essential (primary) hypertension Code(s): I10 - Essential (primary) hypertension Status: Acute Assessment and Plan: Blood pressures were reviewed and they are reasonable. Continue antihypertensives (6) Hyperlipidemia: Qualifiers: Hyperlipidemia type: unspecified Qualified Code(s): E78.5 - Hyperlipidemia, unspecified Code(s): E78.5 - Hyperlipidemia, unspecified Status: Acute Assessment and Plan: Continue simvastatin; LFTs within normal limits. DS: Summary Hospital Course Reason for hospitalization: Herpes zoster Hospital Course: See above for full hospital course Status at Discharge Overall status at discharge: patient is progressing back to baseline Time Spent with Patient Time attestation: Total time spent providing and/or coordinating discharge services: 35 mins Time spent: Greater than 30 minutes Exam Narrative: General: Well-developed female sitting up in bed in no distress. HEENT: PERRL, EOMI. Sclerae anicteric. Oral mucosa moist. Oropharynx clear. Neck: Supple. No JVD or carotid bruits. Respiratory: Lungs are clear to auscultation bilaterally. Cardiovascular: Regular rate and rhythm with S1-S2. Occasional PVCs. Soft systolic murmur at the left upper sternal border. Gastrointestinal: Abdomen is soft, nontender,
[2021-08-18] MEDS: GABAPENTIN 300 MG CAPSULE PO (10:30)
[2021-08-18] MEDS: valACYclovir HCL 500 MG TABLET 1000 MG PO (10:30)
[2021-08-18 11:34] LABS: Glucose Point of Care 240 mg/dl (65-105)
--- NOTE | 2021-08-18 12:25 | PC.NURSE ---
Pt left off unit stable, with family, nurse, and all personal belongings to go home. Nurse transported pt to Front door. No events noted.
--- NOTE | 2021-08-21 10:44 | PC.NURSE ---
MRI c spine faxed to Dr. Em.
== END 2021-08-18 11:18 | disposition home or self-care (01) ==
LOC: ANHED 13:05 → ANHIMU 13:42
PROVIDERS: Physician Assistant; Admitting Provider Student in an Organized Health Care Education/Training Program; Emergency Provider Emergency Medicine; PCP Internal Medicine; Visit Provider Student in an Organized Health Care Education/Training Program
DX: R07.9 Chest pain, unspecified (principal); B02.9 Zoster without complications; M79.602 Pain in left arm; E78.5 Hyperlipidemia, unspecified; I10 Essential (primary) hypertension; E11.8 Type 2 diabetes mellitus with unspecified complications; Z79.4 Long term (current) use of insulin; I25.10 Atherosclerotic heart disease of native coronary artery without angina pectoris; R94.31 Abnormal electrocardiogram [ECG] [EKG]
CPT/HCPCS: 36415; 71046; 72125; 72141; 80048; 80053; 82607; 82948; 83036; 83690; 83735; 84484; 85025; 85610; 85730; 93005; 96374; 99285; A9270; G0378; J1650; J2270

== ENCOUNTER 2021-10-28 07:35 | Outpatient (CLI) | payer MEDICARE, SELFPAY ==
[2021-10-28 09:53] LABS: Cholesterol 204 mg/dL (0-200); HDL Direct 49 mg/dL; Triglycerides 182 mg/dL (<150)
[2021-10-28 10:04] LABS: LDL Cholesterol Direct 96 mg/dL
[2021-10-28 10:11] LABS: Hemoglobin A1C 6.4 % (<5.7)
== END 2021-10-28 07:36 | disposition home or self-care (01) ==
LOC: ANHLAB 07:37
PROVIDERS: PCP Internal Medicine; Visit Provider Nurse Practitioner
DX: E11.9 Type 2 diabetes mellitus without complications (principal); E78.5 Hyperlipidemia, unspecified
CPT/HCPCS: 36415; 80061; 83036

== ENCOUNTER 2021-11-18 13:32 | Outpatient (CLI) | payer MEDICARE, SELFPAY ==
--- NOTE | 2021-11-18 13:47 | ECHO_ITS ---
Patient Info Name: Lorenza Acuña Age: 71 years : 1950 Gender: Female Ht: 64 in Wt: 136 lbs BSA: 1.68 m2 HR: 72 bpm BP: 150 / 86 mmHg Heart Rhythm: Sinus Rhythm Technical Quality: Fair Exam Date: 11/18/2021 2:00 PM Exam Location: [facility] Patient Status: Outpatient Admit Date: 11/18/2021 Staff Ordering Physician: Yaneth Brown NP Operations Tech: Alexandrea Wolf RDCS Attending Provider: Yaneth Brown NP Referring Physician: Collins LOPEZ Exam Type: CA echo doppler color flow Study Info Indications R01.1 - Cardiac murmur, unspecified Complete two-dimensional, color flow and Doppler transthoracic echocardiogram is performed. Summary 1. Complete two-dimensional, color flow and Doppler transthoracic echocardiogram is performed. 2. Left ventricular chamber dimension is normal. 3. Left ventricular systolic function is normal, estimated at 65-70%. 4. There is mildly increased left ventricular wall thickness. 5. The left ventricular diastolic function is grade I diastolic dysfunction. 6. E/e' 15 is elevated. 7. There is mild aortic valve sclerosis. 8. The mitral valve has mildly calcified leaflets and moderately calcified annulus. 9. No pulmonary hypertension, estimated pulmonary arterial systolic pressure is 22 mmHg. Left Ventricle E/e' 15 is elevated. Left ventricular chamber dimension is normal. Left ventricular systolic function is normal, estimated at 65-70%. There is mildly increased left ventricular wall thickness. The left ventricular diastolic function is grade I diastolic dysfunction. Right Ventricle Right ventricular systolic function is normal and with normal TAPSE 1.7 cm. Right ventricular chamber dimension is normal. Left Atria Left atrial chamber dimension is normal. Right Atria Right atrial chamber dimension is normal. Aortic Valve The aortic valve is trileaflet. There is mild aortic valve sclerosis. There is no aortic valve stenosis. There is no aortic valve regurgitation. Pulmonic Valve There is no pulmonic regurgitation. Mitral Valve The mitral valve has mildly calcified leaflets and moderately calcified annulus. There is no mitral valve stenosis. Tricuspid Valve There is no tricuspid valve regurgitation. No pulmonary hypertension, estimated pulmonary arterial systolic pressure is 22 mmHg. Pericardium/Pleural There is no pericardial effusion. Inferior Vena Cava Normal inferior vena cava with >50% collapse upon inspiration consistent with normal right atrial pressure, 5 mmHg. Aorta The aortic root size at the sinus of Valsalva is normal. Left Ventricular Outflow Tract Name Value Normal LVOT 2D LVOT Diameter 2.0 cm LVOT Doppler LVOT Peak Gradient 5 mmHg LVOT Mean Gradient 3 mmHg LVOT VTI 25 cm LVOT VTI/AV VTI Ratio 0.7 LVOT Stroke Volume 74 ml LVOT CO 4.5 l/min LVOT CI 2.7 l/min/m2 Pulmonic Valv
== END 2021-11-18 13:33 | disposition home or self-care (01) ==
LOC: ANHCARD 13:33
PROVIDERS: PCP Internal Medicine; Visit Provider Nurse Practitioner
DX: R01.1 Cardiac murmur, unspecified (principal)
CPT/HCPCS: 93306

== ENCOUNTER 2021-12-27 21:50 | Outpatient (NON) | payer MEDICARE, SELFPAY ==
[2021-12-27 23:29] LABS: Appearance Urine Slightly Cloudy (Clear); Bilirubin Urine Negative (Negative); Blood Urine 2+ (Negative); Color Urine Yellow (Yellow); Glucose Urine UA Negative (Negative); Ketones Urine Negative (Negative); Leukocyte Esterase Ur 2+ LEU/UL (Negative); Nitrate Urine Positive (Negative); Protein Urine 2+ mg/dL (Negative); Specific Grav Ur >= 1.030 (1.001-1.035); Urobilinogen Urine 0.2 mg/dL (<2.0); pH Urine 5.5 (5.0-9.0)
[2021-12-27 23:47] LABS: Bacteria Urine Trace /hpf; Mucus Urine Heavy /lpf; Squamous Epithelial Cell Urine Few /hpf (Few); WBC Clumps Urine Present /HPF; WBC Urine >75 /hpf
[2021-12-27 23:58] LABS: Add Urine Microscopic? YES
== END 2021-12-27 21:51 | disposition home or self-care (01) ==
LOC: ANHLAB 22:02
PROVIDERS: PCP Internal Medicine; Visit Provider Nurse Practitioner
DX: R30.0 Dysuria (principal)
CPT/HCPCS: 81001; 87077; 87086; 87186

== ENCOUNTER 2022-01-01 11:43 | Outpatient (CLI) | payer MEDICARE, SELFPAY ==
[2022-01-01 13:14] LABS: Appearance Urine Slightly Cloudy (Clear); Bilirubin Urine 1+ (Negative); Blood Urine 3+ (Negative); Color Urine Yellow (Yellow); Glucose Urine UA Negative (Negative); Ketones Urine Trace mg/dL (Negative); Leukocyte Esterase Ur Trace LEU/UL (Negative); Nitrate Urine Negative (Negative); Protein Urine Negative (Negative); Specific Grav Ur >= 1.030 (1.001-1.035); pH Urine 5.5 (5.0-9.0)
[2022-01-01 13:21] LABS: Bacteria Urine Trace /hpf; Calcium Oxalate Crystals Urine Many /hpf; Mucus Urine Rare /lpf; RBC Urine 51-75 /hpf (0-2); Squamous Epithelial Cell Urine Many /hpf (Few)
[2022-01-01 13:28] LABS: Add Urine Microscopic? YES
== END 2022-01-01 11:44 | disposition home or self-care (01) ==
PROVIDERS: PCP Internal Medicine; Visit Provider Clinical Nurse Specialist
DX: N30.01 Acute cystitis with hematuria (principal)
CPT/HCPCS: 81001; 87086

== ENCOUNTER 2022-01-06 14:15 | Outpatient (CLI) | payer MEDICARE, SELFPAY ==
[2022-01-06 14:58] LABS: Appearance Urine Clear (Clear); Bilirubin Urine Negative (Negative); Blood Urine Trace-lysed (Negative); Color Urine Yellow (Yellow); Glucose Urine UA Negative (Negative); Ketones Urine Negative (Negative); Leukocyte Esterase Ur 3+ LEU/UL (Negative); Nitrate Urine Negative (Negative); Protein Urine Negative (Negative); Specific Grav Ur 1.015 (1.001-1.035); Urobilinogen Urine 0.2 mg/dL (<2.0); pH Urine 6.5 (5.0-9.0)
[2022-01-06 15:05] LABS: Bacteria Urine Trace /hpf; Squamous Epithelial Cell Urine Occasional /hpf (Few); WBC Urine >75 /hpf
[2022-01-06 15:19] LABS: Add Urine Microscopic? YES
== END 2022-01-06 14:16 | disposition home or self-care (01) ==
LOC: ANHLAB 14:17
PROVIDERS: PCP Internal Medicine; Visit Provider Nurse Practitioner
DX: R31.9 Hematuria, unspecified (principal)
CPT/HCPCS: 81001; 87077; 87086; 87186

== ENCOUNTER → 2022-02-28 08:12 | Outpatient (CLI) | payer MEDICARE, BC, SELFPAY ==
--- NOTE | ~2022-02-28 | MM_ITS ---
EXAMINATION: MM screening benito BI w loulou HISTORY: Screening mammogram TECHNIQUE: Craniocaudal and mediolateral oblique 3-D tomosynthesis images were obtained and synthetic 2-D images were generated. CAD analysis was submitted and interpreted. COMPARISON: 06/11/2018, 06/08/2017, 06/04/2016 bilateral screening mammogram examinations BREAST PARENCHYMAL COMPOSITION: There are scattered areas of fibroglandular density. FINDINGS: Bilateral benign calcifications. There is no evidence of suspicious mass, calcification, or architectural distortion to suggest malignancy in either breast. There has been no suspicious interv al change. IMPRESSION: 1. No mammographic evidence of malignancy. 2. Recommend routine screening mammography in one year. BI-RADS Category 1: Negative Reviewed, dictated and finalized at location A. JOINER
== END ==
PROVIDERS: PCP Internal Medicine; Visit Provider Nurse Practitioner
DX: Z12.31 Encounter for screening mammogram for malignant neoplasm of breast (principal)
CPT/HCPCS: 77063; 77067

== ENCOUNTER 2022-03-25 13:04 | Outpatient (CLI) | payer MEDICARE, SELFPAY ==
[2022-03-25 14:45] LABS: Alanine Aminotransferase 26 U/L (6-35); Albumin Level 4.7 g/dL (3.5-5.1); Alkaline Phosphatase 81 U/L (38-126); Anion Gap 7 mmol/L (8-16); Aspartate Amino Transferase 29 U/L (14-36); Bilirubin,Total 0.8 mg/dL (0.2-1.3); Blood Urea Nitrogen 15 mg/dL (7-17); Calcium 9.5 mg/dL (8.4-10.2); Carbon Dioxide 28 mmol/L (22-30); Chloride 104 mmol/L (98-107); Estimated Glomerular Filt Rate > 60; Glucose 142 mg/dL (65-110); Magnesium 2.2 mg/dL (1.6-2.3); Potassium 3.9 mmol/L (3.4-5.0); Sodium 139 mmol/L (137-145)
[2022-03-25 21:22] LABS: Hemoglobin A1C 6.8 % (<5.7)
== END 2022-03-25 13:05 | disposition home or self-care (01) ==
PROVIDERS: PCP Internal Medicine; Visit Provider Nurse Practitioner
DX: R25.2 Cramp and spasm (principal); E11.9 Type 2 diabetes mellitus without complications
CPT/HCPCS: 36415; 80053; 83036; 83735

== ENCOUNTER 2022-07-23 10:04 | Outpatient (CLI) | payer MEDICARE, SELFPAY ==
[2022-07-23 10:28] LABS: Basophils Absolute Auto 0.1 K/mm3 (0.0-0.1); Basophils Percent Auto 1.1 % (0.2-1.2); Eosinophils Absolute Auto 0.2 K/mm3 (0-0.3); Eosinophils Percent Auto 2.6 % (0-4.4); Hematocrit 43.3 % (37.0-47.0); Hemoglobin 14.8 g/dL (12.0-15.0); Immature Granulocyte Absolute 0.02 K/mm3 (0.00-0.031); Immature Granulocyte Percent A 0.3 % (0-0.5); Lymphocytes Absolute Auto 1.91 K/mm3 (0.9-3.2); Lymphocytes Percent Auto 30.7 % (18.3-44.2); Mean Corpuscular HGB Conc 34.2 g/dl (32-36); Mean Corpuscular Hemoglobin 32.1 pg (26-34); Mean Corpuscular Volume 93.9 fl (80-100); Mean Platelet Volume 9.7 fl (7.4-10.4); Monocytes Absolute Auto 0.5 K/mm3 (0.1-0.6); Monocytes Percent Auto 7.9 % (2.6-8.5); Neutrophils Absolute Auto 3.6 K/mm3 (1.3-6.7); Neutrophils Percent Auto 57.4 % (45.5-73.1); Platelet Count Result 197 k/mm3 (150-375); Red Blood Count 4.61 M/mm3 (4.2-5.4); Red Cell Distribution Width 12.1 % (11.5-14.5); White Blood Count 6.2 K/mm3 (4.5-10.0)
[2022-07-23 10:38] LABS: Alanine Aminotransferase 23 U/L (6-35); Albumin Level 4.6 g/dL (3.5-5.1); Alkaline Phosphatase 83 U/L (38-126); Anion Gap 4 mmol/L (8-16); Aspartate Amino Transferase 23 U/L (14-36); Blood Urea Nitrogen 20 mg/dL (7-17); Calcium 9.7 mg/dL (8.4-10.2); Carbon Dioxide 33 mmol/L (22-30); Chloride 105 mmol/L (98-107); Estimated Glomerular Filt Rate > 60; Glucose 97 mg/dL (65-110); Potassium 4.3 mmol/L (3.4-5.0); Sodium 142 mmol/L (137-145)
[2022-07-23 11:13] LABS: Hemoglobin A1C 6.5 % (<5.7)
[2022-07-23 11:43] LABS: Folic Acid 7.3 ng/mL (2.76->20)
== END 2022-07-23 10:05 | disposition home or self-care (01) ==
PROVIDERS: PCP Internal Medicine; Visit Provider Nurse Practitioner
DX: E10.9 Type 1 diabetes mellitus without complications (principal); R41.3 Other amnesia
CPT/HCPCS: 36415; 80053; 82607; 82746; 83036; 84443; 85025

== ENCOUNTER 2022-08-01 09:34 | Outpatient (CLI) | payer MEDICARE, SELFPAY ==
--- NOTE | ~2022-08-01 | MR_ITS ---
MRI of the brain Clinical History: Memory changes Technique: Axial and sagittal T1-weighted images were acquired. These were followed by axial T2-weigh kulwant, diffusion weighted, gradient, and FLAIR images. Following intravenous administration of 12 cc M ultiHance gadolinium, T1-weighted fat-sat imaging was performed in the axial and coronal planes. COMPARISON: 11/27/2006 Findings: There is no acute infarct, intracranial hemorrhage, or mass lesion. There are moderate lunchroom worker leonel white matter changes in the periventricular white matter bilaterally. Ventricles and subarachnoid spaces are mildly dilated. Orbits are unremarkable. Paranasal sinuses and mastoid air cells are clear. Major intracranial flow voids are intact. Sagittal midline structures are intact. No abnormal postcontrast enhancement identified. IMPRESSION: No acute abnormality. Moderate chronic microvascular ischemic change and mild to moderate generalized atrophy. Reviewed, dictated and finalized at [facility].
== END 2022-08-01 09:35 | disposition home or self-care (01) ==
PROVIDERS: PCP Internal Medicine; Visit Provider Nurse Practitioner
DX: R41.3 Other amnesia (principal)
CPT/HCPCS: 70553; A9577

== ENCOUNTER 2022-09-19 07:18 | Outpatient (CLI) | payer MEDICARE, SELFPAY ==
[2022-09-19 07:40] LABS: Basophils Absolute Auto 0.1 K/mm3 (0.0-0.1); Basophils Percent Auto 1.2 % (0.2-1.2); Eosinophils Absolute Auto 0.3 K/mm3 (0-0.3); Eosinophils Percent Auto 3.9 % (0-4.4); Hematocrit 43.4 % (37.0-47.0); Hemoglobin 14.8 g/dL (12.0-15.0); Immature Granulocyte Absolute 0.01 K/mm3 (0.00-0.031); Immature Granulocyte Percent A 0.2 % (0-0.5); Lymphocytes Absolute Auto 2.15 K/mm3 (0.9-3.2); Lymphocytes Percent Auto 33.5 % (18.3-44.2); Mean Corpuscular HGB Conc 34.1 g/dl (32-36); Mean Corpuscular Hemoglobin 31.8 pg (26-34); Mean Corpuscular Volume 93.1 fl (80-100); Mean Platelet Volume 9.5 fl (7.4-10.4); Monocytes Absolute Auto 0.5 K/mm3 (0.1-0.6); Neutrophils Absolute Auto 3.4 K/mm3 (1.3-6.7); Neutrophils Percent Auto 53.2 % (45.5-73.1); Platelet Count Result 196 k/mm3 (150-375); Red Blood Count 4.66 M/mm3 (4.2-5.4); White Blood Count 6.4 K/mm3 (4.5-10.0)
[2022-09-19 07:54] LABS: Alanine Aminotransferase 25 U/L (6-35); Albumin Level 4.4 g/dL (3.5-5.1); Alkaline Phosphatase 75 U/L (38-126); Anion Gap 4 mmol/L (8-16); Aspartate Amino Transferase 24 U/L (14-36); Bilirubin,Total 0.6 mg/dL (0.2-1.3); Blood Urea Nitrogen 14 mg/dL (7-17); Carbon Dioxide 32 mmol/L (22-30); Chloride 106 mmol/L (98-107); Cholesterol 234 mg/dL (0-200); Estimated Glomerular Filt Rate > 60; Glucose 128 mg/dL (65-110); HDL Direct 61 mg/dL; Potassium 3.7 mmol/L (3.4-5.0); Sodium 142 mmol/L (137-145); Triglycerides 200 mg/dL (<150)
[2022-09-19 08:05] LABS: LDL Cholesterol Direct 130 mg/dL
[2022-09-19 08:36] LABS: Vitamin D 25 Hydroxy 26.7 ng/mL
[2022-09-19 10:16] LABS: Hemoglobin A1C 6.4 % (<5.7)
== END 2022-09-19 07:19 | disposition home or self-care (01) ==
PROVIDERS: PCP Internal Medicine; Visit Provider Nurse Practitioner
DX: E55.9 Vitamin D deficiency, unspecified (principal); E10.9 Type 1 diabetes mellitus without complications
CPT/HCPCS: 36415; 80053; 80061; 82306; 83036; 85025

== ENCOUNTER 2023-04-01 10:22 | Outpatient (CLI) | payer MEDICARE, SELFPAY ==
[2023-04-01 10:44] LABS: Basophils Absolute Auto 0.1 K/mm3 (0.0-0.1); Basophils Percent Auto 0.9 % (0.2-1.2); Eosinophils Absolute Auto 0.1 K/mm3 (0-0.3); Eosinophils Percent Auto 1.7 % (0-4.4); Hematocrit 46.7 % (37.0-47.0); Hemoglobin 15.9 g/dL (12.0-15.0); Immature Granulocyte Absolute 0.01 K/mm3 (0.00-0.031); Immature Granulocyte Percent A 0.2 % (0-0.5); Lymphocytes Absolute Auto 1.61 K/mm3 (0.9-3.2); Lymphocytes Percent Auto 24.8 % (18.3-44.2); Mean Corpuscular Hemoglobin 31.7 pg (26-34); Mean Platelet Volume 9.7 fl (7.4-10.4); Monocytes Absolute Auto 0.5 K/mm3 (0.1-0.6); Monocytes Percent Auto 7.5 % (2.6-8.5); Neutrophils Absolute Auto 4.2 K/mm3 (1.3-6.7); Neutrophils Percent Auto 64.9 % (45.5-73.1); Platelet Count Result 237 k/mm3 (150-375); Red Blood Count 5.02 M/mm3 (4.2-5.4); Red Cell Distribution Width 12.2 % (11.5-14.5); White Blood Count 6.5 K/mm3 (4.5-10.0)
[2023-04-01 10:56] LABS: Alanine Aminotransferase 24 U/L (6-35); Albumin Level 4.6 g/dL (3.5-5.1); Alkaline Phosphatase 80 U/L (38-126); Anion Gap 9 mmol/L (8-16); Aspartate Amino Transferase 29 U/L (14-36); Blood Urea Nitrogen 18 mg/dL (7-17); Calcium 9.2 mg/dL (8.4-10.2); Carbon Dioxide 28 mmol/L (22-30); Chloride 104 mmol/L (98-107); Cholesterol 272 mg/dL (0-200); Estimated Glomerular Filt Rate > 60; Glucose 141 mg/dL (65-110); HDL Direct 63 mg/dL; Potassium 4.3 mmol/L (3.4-5.0); Sodium 141 mmol/L (137-145); Triglycerides 194 mg/dL (<150)
[2023-04-01 11:07] LABS: LDL Cholesterol Direct 156 mg/dL
[2023-04-01 11:32] LABS: Hemoglobin A1C 6.5 % (<5.7)
== END 2023-04-01 10:23 | disposition home or self-care (01) ==
LOC: ANHLAB 10:26
PROVIDERS: PCP Internal Medicine; Visit Provider Nurse Practitioner
DX: E11.69 Type 2 diabetes mellitus with other specified complication (principal); E78.5 Hyperlipidemia, unspecified; Z79.4 Long term (current) use of insulin
CPT/HCPCS: 36415; 80053; 80061; 83036; 85025

== ENCOUNTER → 2023-05-29 13:43 | Outpatient (CLI) | payer MEDICARE, SELFPAY ==
--- NOTE | ~2023-05-29 | MM_ITS ---
EXAMINATION: MM screening benito BI w loulou HISTORY: Screening TECHNIQUE: Craniocaudal and mediolateral oblique 3-D tomosynthesis images were obtained and synthetic 2-D images were generated. CAD analysis was submitted and interpreted. COMPARISON: Comparison to multiple prior studies sequentially, with oldest reviewed study dated 04/2016. BREAST PARENCHYMAL COMPOSITION: There are scattered areas of fibroglandular density. FINDINGS: There is no evidence of suspicious mass, calcification, or architectural distortion to sugg est malignancy in either breast. There has been no suspicious interval change. IMPRESSION: 1. No mammographic evidence of malignancy. 2. Recommend routine screening mammography in one year. BI-RADS Category 1: Negative Reviewed, dictated and finalized at location A. [place] [employer]CH[employer]
== END ==
PROVIDERS: PCP Internal Medicine; Visit Provider Clinical Nurse Specialist
DX: Z12.31 Encounter for screening mammogram for malignant neoplasm of breast (principal)
CPT/HCPCS: 77063; 77067

== ENCOUNTER 2023-10-07 10:26 | Outpatient (CLI) | payer MEDICARE, SELFPAY ==
[2023-10-07 11:00] LABS: Hemoglobin A1C 6.6 % (<5.7)
== END 2023-10-07 10:27 | disposition home or self-care (01) ==
PROVIDERS: PCP Internal Medicine; Visit Provider Nurse Practitioner
DX: E11.9 Type 2 diabetes mellitus without complications (principal); Z79.4 Long term (current) use of insulin
CPT/HCPCS: 36415; 83036

== ENCOUNTER 2023-10-14 01:46 | Day surgery (SDC) | payer MEDICARE, SELFPAY ==
[2023-09-28 15:13] VITALS: BMI 24.5
[2023-10-14 09:08] VITALS: BP 137/103; PULSE 103; RESP 20; TEMP 36.3; O2SAT 100; BMI 23.9
[2023-10-14] MEDS: LACTATED RINGERS 1,000 ML 150 ML IV CONT (09:24)
--- NOTE | 2023-10-14 09:37 | WPDANESEPPF ---
Anes - Initial Pre Proc Eval Procedure: Operation Date: 10/14/23 10:30 Proposed Procedures p Colonoscopy - Vikram Patino MD Date/Time: 10/14/23 09:37 Surgeon: Vikram Patino MD Pre Op Diagnosis: Personal Hx colon polyps Patient Data Age: 73 Gender: F Height: 1.63 m Weight: 63.2 kg Last Vital Signs Temp 97.4 F L 10/14/23 09:08 Pulse 103 H 10/14/23 09:08 Resp 20 10/14/23 09:08 BP 137/103 H 10/14/23 09:08 Pulse Ox 100 10/14/23 09:08 O2 Del Method Room Air 10/14/23 09:08 Allergies Allergy/AdvReac Type Severity Reaction Status Date / Time nitrofurantoin Allergy Severe Anaphylactic Verified 10/14/23 09:07 Shock atropine Allergy Intermediate LOW BLOOD Verified 10/14/23 09:07 PRESSURE, ANXIETY aspirin Allergy Unknown Anaphylactic Verified 10/14/23 09:07 Shock NSAIDS (Non-Steroidal Allergy Unknown Unknown Verified 10/14/23 09:07 Anti-Inflamma phenazopyridine Allergy Unknown Unknown Verified 10/14/23 09:07 Home Medications Medication Instructions Recorded Confirmed Type irbesartan 75 mg tablet (Avapro) 37.5 mg PO DAILY #90 tabs 05/13/22 10/14/23 Rx simvastatin 10 mg tablet 10 mg PO DAILY #90 tabs 09/22/22 10/14/23 Rx cholecalciferol (vitamin D3) 125 125 mcg PO DAILY 04/01/23 10/14/23 History mcg (5,000 unit) capsule donepezil 5 mg tablet 10 mg PO DAILY 04/01/23 10/14/23 History mecobalamin (vitamin B12) 5,000 5,000 mcg PO DAILY 04/01/23 10/14/23 History mcg chewable tablet insulin aspart U-100 100 unit/mL See Rx Instructions subcut 05/11/23 10/14/23 Rx subcutaneous solution (Novolog USEASDIRECTD #7 vials U-100 Insulin aspart) escitalopram oxalate 5 mg PO DAILY 09/28/23 10/14/23 History Patient hx anesthesia problems: none Family hx anesthesia problems: none Results Review: All pre-operative results and documents have been reviewed as part of the pre-operative evaluation. [facility] Past Medical History Medical History (Updated 10/07/23 @ 10:00 by Yaneth Brown NP) Alzheimer dementia Depression Hyperlipidemia Hypertension Insulin dependent type 2 diabetes mellitus Kidney stones Shingles Squamous cell carcinoma skin of arm Syncope Surgical History Surgical History History of 3 sections History of abdominoplasty History of benign breast biopsy History of cardiac catheterization (2014) Unremarkable per patient report. History of cataract extraction with lens replacement History of cholecystectomy History of cystoscopy History of hysterectomy History of nephrolithotomy with removal of calculi History of removal of ureteral stent History of squamous cell carcinoma excision Neck. History of tonsillectomy Status post trigger finger release Family History Family History Mother Hypertension Cerebrovascular accident Father Family history of Parkinson's disease Family history of coronary artery disease Social History Social History Social History: Surrogate decision maker: Amaya Acuña, daughter. Code status: Full code. Smoking status: Never smoker Second hand tobacco smoke exposure: No Alcohol intake: current Drinks per week: 3 Alcohol use details: Mixed drinks or wine. Substance use: never Substance use type: does not use Lack of Transportation: No Lack of Food: Never True Current Housing: I Have Housing Concerned About Future Housing: No Difficulty Paying Gas/Electric Bills: No Difficulty Paying for Meds: No Currently Unemployed: No Education: Associate Degree Difficulty w/ Childcare or Family Care: No Living arrangements: with family Additional living arrangements comments: . Three children. Independent living at [place]. Additional occupation/education com
--- NOTE | 2023-10-14 09:43 | PM.HPGS ---
History of Present Illness History of Present Illness Consent: Risks, benefits, and alternatives have been discussed and questions answered. Patient agrees to proceed with procedure. Chief complaint: Personal Hx colon polyps Narrative: Lorenza Acuña is a 73 year old female with colon polyp in 2020 Review of Systems Review of Systems: All systems reviewed & are unremarkable except as noted in HPI and below PMFSH Past Medical History Medical History (Updated 10/14/23 @ 09:45 by Vikram Patino MD) Adenomatous colon polyp Alzheimer dementia Depression Hyperlipidemia Hypertension Insulin dependent type 2 diabetes mellitus Kidney stones Shingles Squamous cell carcinoma skin of arm Syncope Surgical History Surgical History History of 3 sections History of abdominoplasty History of benign breast biopsy History of cardiac catheterization (2014) Unremarkable per patient report. History of cataract extraction with lens replacement History of cholecystectomy History of cystoscopy History of hysterectomy History of nephrolithotomy with removal of calculi History of removal of ureteral stent History of squamous cell carcinoma excision Neck. History of tonsillectomy Status post trigger finger release Family History Family History Mother Hypertension Cerebrovascular accident Father Family history of Parkinson's disease Family history of coronary artery disease Social History Social History Social History: Surrogate decision maker: Amaya Acuña, daughter. Code status: Full code. Smoking status: Never smoker Second hand tobacco smoke exposure: No Alcohol intake: current Drinks per week: 3 Alcohol use details: Mixed drinks or wine. Substance use: never Substance use type: does not use Lack of Transportation: No Lack of Food: Never True Current Housing: I Have Housing Concerned About Future Housing: No Difficulty Paying Gas/Electric Bills: No Difficulty Paying for Meds: No Currently Unemployed: No Education: Associate Degree Difficulty w/ Childcare or Family Care: No Living arrangements: with family Additional living arrangements comments: . Three children. Independent living at [place]. 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 Spiritual care concerns: No Meds Home Medications and Allergies Home Medications Medication Instructions Recorded Confirmed Type irbesartan 75 mg tablet (Avapro) 37.5 mg PO DAILY #90 tabs 05/13/22 10/14/23 Rx simvastatin 10 mg tablet 10 mg PO DAILY #90 tabs 09/22/22 10/14/23 Rx cholecalciferol (vitamin D3) 125 125 mcg PO DAILY 04/01/23 10/14/23 History mcg (5,000 unit) capsule donepezil 5 mg tablet 10 mg PO DAILY 04/01/23 10/14/23 History mecobalamin (vitamin B12) 5,000 5,000 mcg PO DAILY 04/01/23 10/14/23 History mcg chewable tablet insulin aspart U-100 100 unit/mL See Rx Instructions subcut 05/11/23 10/14/23 Rx subcutaneous solution (Novolog USEASDIRECTD #7 vials U-100 Insulin aspart) escitalopram oxalate 5 mg PO DAILY 09/28/23 10/14/23 History Allergies Allergy/AdvReac Type Severity Reaction Status Date / Time nitrofurantoin Allergy Severe Anaphylactic Verified 10/14/23 09:07 Shock atropine Allergy Intermediate LOW BLOOD Verified 10/14/23 09:07 PRESSURE, ANXIETY aspirin Allergy Unknown Anaphylactic Verified 10/14/23 09:07 Shock NSAIDS (Non-Steroidal Allergy Unknown Unknown Verified 10/14/23 09:07 Anti-Inflamma phenazopyridine Allergy Unknown Unknown Verified 10/14/23 09:07 Vital Signs Vital Signs - 24 hr 10/14/23 09:08 Temperature 97.4 F L Pulse Rate 103 H Respiratory Rate 20 Blood Pressure 137/103 H Pulse Oximetry 100 Oxygen Delivery Ro
[2023-10-14 09:53] LABS: Glucose Point of Care 160 mg/dl (65-105)
[2023-10-14 10:06] VITALS: BP 112/63; PULSE 80; RESP 20; O2SAT 97
[2023-10-14 10:16] VITALS: BP 120/64; PULSE 68; RESP 20; O2SAT 98
[2023-10-14 10:26] VITALS: BP 127/72; PULSE 89; RESP 20; O2SAT 96
== END 2023-10-14 10:38 | disposition home or self-care (01) ==
PROVIDERS: PCP Internal Medicine; Visit Provider Internal Medicine Gastroenterology
PROC: 0DJD8ZZ Inspection of Lower Intestinal Tract, Via Natural or Artificial Opening Endoscopic (ICD-10-PCS; CPT 45378; principal; 2023-10-14 10:30)
DX: Z12.11 Encounter for screening for malignant neoplasm of colon (principal); D12.4 Benign neoplasm of descending colon; D12.5 Benign neoplasm of sigmoid colon; K57.30 Diverticulosis of large intestine without perforation or abscess without bleeding; K64.8 Other hemorrhoids; G30.9 Alzheimer's disease, unspecified; F02.80 Dementia in other diseases classified elsewhere, unspecified severity, without behavioral disturbance, psychotic disturbance, mood disturbance, and anxiety; E78.5 Hyperlipidemia, unspecified; I10 Essential (primary) hypertension; E11.9 Type 2 diabetes mellitus without complications; F32.A Depression, unspecified; Z79.4 Long term (current) use of insulin
CPT/HCPCS: 45385; 82948; 88305; J2704; J7120

== ENCOUNTER 2024-04-07 14:22 | Outpatient (CLI) | payer MEDICARE, SELFPAY ==
[2024-04-07 14:34] LABS: Basophils Absolute Auto 0.1 K/mm3 (0.0-0.1); Basophils Percent Auto 0.8 % (0.2-1.2); Eosinophils Absolute Auto 0.1 K/mm3 (0-0.3); Eosinophils Percent Auto 1.4 % (0-4.4); Hematocrit 41.4 % (37.0-47.0); Hemoglobin 14.3 g/dL (12.0-15.0); Immature Granulocyte Absolute 0.02 K/mm3 (0.00-0.031); Immature Granulocyte Percent A 0.3 % (0-0.5); Lymphocytes Absolute Auto 1.93 K/mm3 (0.9-3.2); Lymphocytes Percent Auto 24.5 % (18.3-44.2); Mean Corpuscular HGB Conc 34.5 g/dl (32-36); Mean Corpuscular Hemoglobin 31.8 pg (26-34); Mean Corpuscular Volume 92.2 fl (80-100); Mean Platelet Volume 9.7 fl (7.4-10.4); Monocytes Absolute Auto 0.6 K/mm3 (0.1-0.6); Monocytes Percent Auto 7.2 % (2.6-8.5); Neutrophils Absolute Auto 5.2 K/mm3 (1.3-6.7); Neutrophils Percent Auto 65.8 % (45.5-73.1); Platelet Count Result 207 k/mm3 (150-375); Red Blood Count 4.49 M/mm3 (4.2-5.4); Red Cell Distribution Width 11.9 % (11.5-14.5); White Blood Count 7.9 K/mm3 (4.5-10.0)
[2024-04-07 16:38] LABS: Alanine Aminotransferase 22 U/L (6-35); Albumin Level 4.3 g/dL (3.5-5.1); Alkaline Phosphatase 84 U/L (38-126); Anion Gap 3 mmol/L (4-12); Aspartate Amino Transferase 23 U/L (14-36); Bilirubin,Total 0.8 mg/dL (0.2-1.3); Blood Urea Nitrogen 13 mg/dL (7-17); Calcium 9.4 mg/dL (8.4-10.2); Carbon Dioxide 30 mmol/L (22-30); Chloride 102 mmol/L (98-107); Cholesterol 209 mg/dL (0-200); Estimated Glomerular Filt Rate 54; Glucose 379 mg/dL (65-110); HDL Direct 51 mg/dL; Sodium 135 mmol/L (137-145); Triglycerides 264 mg/dL (<150)
[2024-04-07 16:50] LABS: LDL Cholesterol Direct 101 mg/dL
[2024-04-07 16:55] LABS: Vitamin D 25 Hydroxy 28.7 ng/mL
[2024-04-07 17:07] LABS: Hemoglobin A1C 7.6 % (<5.7)
== END 2024-04-07 14:23 | disposition home or self-care (01) ==
LOC: ANHLAB 14:23
PROVIDERS: Nurse Practitioner; PCP Internal Medicine; Visit Provider Internal Medicine
DX: E55.9 Vitamin D deficiency, unspecified (principal); E11.9 Type 2 diabetes mellitus without complications; Z79.4 Long term (current) use of insulin
CPT/HCPCS: 36415; 80053; 80061; 82306; 83036; 85025

== ENCOUNTER 2024-10-10 13:04 | Outpatient (CLI) | payer MEDICARE, SELFPAY ==
--- OUTSIDE RECORDS SUMMARY | 2024-10-10 13:14 | XMS_ITS ---
Author Name Auto Generated, Auto Generated Organization [facility] Address [address] [place] [address] Phone [phone] Care Team Providers Care Gastroenterology Manager Name Role Phone Rip Reid Unavailable Functional Status No Results Mental Status No Results Allergies and Intolerances No Known Allergies Encounters Program Name Primary Diagnosis Admission Date/Time Dis charge Date/Time null ThuJun 23 07:59:00 EDT 2015 Problems Active Concerns * Encounter for other specified surgical aftercare* Code: * Start Date: ThuDec 11 00:00:00 EDT 2016 * End Date: * Text: * Lumbago with sciatica, left side* Code: * Start Date: ThuJul 05 00:00:00 EDT 2018 * End Date: * Text: * Pain in unspecified knee* Code: * Start Date: ThuJun 07 00:00:00 EST 2019 * End Date: * Text: * Other abnormalities of gait and mobility* Code: * Start Date: ThuJun 07 00:00:00 EST 2019 * End Date: * Text: Reason for Referral Past Medical History
--- OUTSIDE RECORDS SUMMARY | 2024-10-10 13:14 | XMS_ITS | Clinical Summary ---
Author Organization [facility] Address [address] [place] [address] Care Team Providers Care Softball Umpire Name Role Phone Rip Reid DO Primary Care Provider [phone] Allergies Active Allergy Reactions Criticality Noted Date Comments Aspirin Anaphylaxis High Reaction: ANAPHYLAXIS, , Atropine Dizziness,Other (See comments) Low 12/18/2023 Reaction: Other Nitrofurantoin Monohyd/M-Cryst Anaphylaxis High 12/05/2016 Nitrofurantoin Nitrofurantoin Macrocrystal Anaphylaxis High 12/18/2023 Nsaids (Non-Steroidal Anti-Inflammatory Drug) Anaphylaxis High 12/18/2023 Medications insulin aspart (NovoLOG) 100 unit/mL injection inject by subcutaneous route per prescriber's instructions. Insulin dosing requires individualizati on. 0 vial 0 09/27/19 15 Active insulin detemir (LEVEMIR) 100 unit/mL injection inject by subcutaneous route per prescriber's instructions. Insulin dosing requires individualizati on. 0 vial 0 09/27/19 15 Active simvastatin (ZOCOR) 10 mg tablet Take 1 tablet (10 mg total) by mouth daily 08/05/19 24 Active irbesartan (AVAPRO) 75 mg tablet Take 0.5 tablets (37.5 mg total) by mouth daily Active vitamin E 400 unit capsule Take 1 capsule (400 Units total) by mouth Active escitalopram (LEXAPRO) 10 mg tablet TAKE 1 TABLET(10 MG) BY MOUTH DAILY 90 tablet 3 12/18/19 24 Active HumaLOG 100 unit/mL vial for injection Active mecobalamin (B12 ACTIVE ORAL) Take by mouth Active CHOLECALCIFERO L, VITAMIN D3, ORAL Take by mouth Active fluticasone propionate (FLONASE) 50 mcg/actuation nasal sprayIndicatio ns:Non-recurre nt acute serous otitis media of both ears Administer 2 sprays into each nostril daily 1 each 06/28/19 25 Active Additional Information Patient not taking.Reported on 09/19/2024 donepeziL (ARICEPT) 10 mg tablet TAKE 1 TABLET(10 MG) BY MOUTH DAILY 30 tablet 11 09/13/19 25 Active donepeziL (ARICEPT) 10 mg tablet Take 1 tablet (10 mg total) by mouth daily 30 tablet 11 09/21/19 24 025 Discontinued Active Problems Problem Noted Date Diagnosed Date Alzheimer's disease with late onset 03/28/2024 Assessment & Plan (09/19/2024 10:55 AM CDT): Overall, decline to cognitive testing. There was also a decline to her clock drawing. Suggested she no longer drive alone and drive with a family member at all times in which CS agreed. Information was provided on the GUIDE program. Follow-up in 6 months or sooner if need be. Assessment & Plan (03/28/2024 11:46 AM DIRECTOR OF MEDICARE): Continue donepezil/Aricept 10 mg daily and escitalopram/Lexapro 10 mg daily. May consider memantine/Namenda in the future but I do not see the indication for it now. Recommended CS continue to ride with her on occasion when she drives to monitor her driving habits. Offered a trial of buspirone/Buspar to help with anxiety but patient would like to hold off for now. Follow-up in 6 months or sooner if need be. Memory loss 09/21/2023 Assessment & Plan (09/21/2023 4:05 PM CDT): Increase donepezil/Aricept to 10 mg daily. Trial low dose antidepressant (escitalopram/Lexapro) 5 mg daily. Will increase to 10 mg after one month if tolerated. Went over relevant side effects. Small change to clock drawing. Recommended CS to ride with patient once every two weeks or so for the next month. If they see a decline in driving patterns, they will reach out to possibly get a driving evaluation on patient. Recommended significant other, Ricky, help with organizing pills to ensure patient is taking them accurately. They are going to get a pill box to help organize the pills. Follow-up in 6 months or sooner if need be. 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 Encounters Date Type Department Care Team Description 09/19/2024 10:15 AM CDT Office Visit [facility] [place] [address] 6th [address] [place] [address] Rakesh Alatorre NP Alzheimer's disease with late onset (HCC) (Primary Dx) from Last 3 Months Surgical History Surgery Date Site/Laterality Comments CHOLECYSTECTOMY Cholecystectomy AL TENDON SHEATH INCISION Hand Incision Tendon Sheath Of A Finger - (Added by THEODORE Conv) Medical History Medical History Date Comments Hx Other Medical ; Comm ents: [facility] 09/26/2014 - Hx Other Medical hysterectomy; C omments: [facility] 09/26/2014 - Hx Other Medical breast biopsy; Comments: [facility] 09/26/2014 - Hx Other Medical hernia repair; Comments: [facility] 09/26/2014 - Hx Other Medical diabetes; Comme nts: [facility] 09/26/2014 - Hx Other Medical dyslipidemia; C omments: [facility] 09/26/2014 - Family History Medical History Relation Name Comments Parkinsonism Brother 2 Parkinson's dis ease; Cause of : Parkinson's disease Parkinsonism Father dementia with L ewy bodies. Heart attack Mother Myocardial infa rction; 09/26/2014 -patients mother also had multiple CVA's Heart disease Mother Family history of cardiac disorder - (Added by THEODORE Conv) Diabetes Other Family history of Diabetes mellitus; Relation Name Status Comments Brother 1 Brother 2 Father Mother Other Social History Tobacco Use Types Packs/Day Years Used Date Smoking Tobacco: Never Tobacco Cessation:Counseling Given: Not Answered Alcohol Use Standard Drinks/Week Comments Yes 0 (1 standard drink = 0.6 oz pur e alcohol) Comments Unknown Sex and Gender Information Value Date Recorded Sex Assigned at Not on file Legal Sex Female 9:05 PM DIRECTOR OF MEDICARE Gender Identity Female 02/12/2023 2:24 PM DIRECTOR OF MEDICARE Sexual Orientation Straight 02/12/2023 2: 24 PM DIRECTOR OF MEDICARE Obstetrics History Last Filed Vital Signs Vital Sign Reading Time Taken Comments Blood Pressure 162/70 09/19/2024 10:05 AM CDT Pulse 73 09/19/2024 10:05 AM CDT Temperature 36.4 C (97.5 F) 09/19/2024 10:05 AM CDT Respiratory Rate 24 06/27/2024 6:07 PM CDT Oxygen Saturation 96% 09/19/2024 10:05 AM CDT Inhaled Oxygen Concentration - - Weight 63.5 kg (140 lb) 09/19/2024 10:05 AM CDT Height 165.1 cm (5' 5) 09/19/2024 10:05 AM CDT Body Mass Index 23.3 09/19/2024 10:05 AM CDT Plan of Treatment Health Maintenance Due Date Last Done Comments Colon Cancer Screening-Colonoscopy 1949 Depression Screening 1949 Fall Risk Assessment 1949 Hepatitis C Screening 1949 Osteoporosis Screening-Bone Density Scan 1949 Hepatitis B Screening 1967 Pneumococcal vaccine 65+ (1 of 1 - PCV) 1999 Well Visit 65+ 2014 Covid-19 Vaccine (6 - 2023-2 5 season) 2023 09/29/2022, 12/30/2021, 01/10/2021, Additional history exists Influenza Vaccine (#1) 2024 2, 12/05/2017, 01/01/2013 DTaP/Tdap/Td Vaccine (2 - Td or Tdap) 06/04/2029 06/05/2019 Zoster Vaccine Completed 02/13/2022, 11/27/2021 Insurance MEDICARE Member Subscriber Plan / Payer (Ef fective 2014-Present) Name:Lorenza Acuña Member ID:[id number] Relation to Subscriber:Self Name:Lorenza Acuña Subscriber ID:[id number] Payer ID:[id number] Group ID:Not on file Type:MEDICARE TRADITIONAL Address: [place] [phone] MEDICARE BLUE CROSS MEDICARE SUPPLEMENT MEDICARE [facility] MEDICARE SUPPLEMENT MEDICARE Care Teams Softball Umpire Relationship Specialty Start Date End Date Rpi Reid DO PCP - General 11/18/16
--- OUTSIDE RECORDS SUMMARY | 2024-10-10 13:14 | XMS_ITS | Clinical Summary ---
Author Organization [facility] Address [address] [place] [address] Care Team Providers Care Pruner Name Role Phone Jadielortiz Rip Yara NARANJO Primary Care Provider [phone] Source Comments [facility],non-owned Affiliates and Associated Physician Practices is amultiple site organization consisting of ambulatory clinics and hospital sitesin [place], [place], [place]. This disclosure is being madepursuant to the Care Everywhere program and may not contain all information available regarding this patient. Last updated 17.[facility] Allergies Active Allergy Reactions Criticality Noted Date Comments Aspirin Anaphylaxis High Reaction: ANAPHYLAXIS, NSAIDs Nitrofurantoin Anaphylaxis High 12/05/2016 Medications * Be aware that medications may not be up to date on this document. Alwaysverify current medications with the patient. rosuvastatin (CRESTOR) 20 MG tablet 0 02/15/2018 Active sertraline (ZOLOFT) 25 MG tablet 1 02/13/2018 Active irbesartan (AVAPRO) 150 MG tablet 2 02/13/2018 Active prednisoLONE acetate (PRED FORTE) 1 % ophthalmic suspension 0 02/10/2018 Active vitamin D, ergocalciferol, (DRISDOL) 86419 UNITS capsule TK 1 C PO WEEKLY 4 02/13/2018 Active HUMALOG vial INJ UTD VIA INSULIN PUMP. MAX OF 70 UNITS QD. 3 01/20/2018 Active Active Problems No known active problems Immunizations Immunization Administration Dates Next Due INFLUENZA VACCINE 12/05/2017 Family History Medical History Relation Name Comments Cancer - Skin, Melanoma Neg Hx Cancer - Skin, Non Melanoma Neg Hx Social History Tobacco Use Types Packs/Day Years Used Date Smoking Tobacco: Never Smokeless Tobacco: Never Alcohol Use Standard Drinks/Week Comments Yes 0 (1 standard drink = 0.6 oz pur e alcohol) Comments Unknown Sex and Gender Information Value Date Recorded Sex Assigned at Not on file Legal Sex Female 10:05 AM CDT Gender Identity Not on file Sexual Orientation Not on file Last Filed Vital Signs Vital Sign Reading Time Taken Comments Blood Pressure - - Pulse - - Temperature - - Respiratory Rate - - Oxygen Saturation - - Inhaled Oxygen Concentration - - Weight 66.7 kg (147 lb) 02/17/2018 10:49 AM WARP TYING MACHINE TENDER Height 162.6 cm (5' 4) 02/17/2018 10:49 AM WARP TYING MACHINE TENDER Body Mass Index 25.23 02/17/2018 10:49 AM WARP TYING MACHINE TENDER Plan of Treatment Health Maintenance Due Date Last Done Comments BONE DENSITY TESTING 1950 COLOGUARD (AGES 45-75) - COL ON CA SCREENING 1949 COLON MONITORING 1949 COLONOSCOPY - COLON CA SCREENING 1949 CT COLONOGRAPHY - COLON CA SCREENING 1949 Colorectal Cancer Screening 1949 FIT - COLON CA SCREENING 1949 FLEX SIG - COLON CA SCREENING 1949 MAMMOGRAM 1950 MEDICARE AWV 12 MONTHS 1949 HEPATITIS C SCREENING 03/05/1967 DTAP/TDAP/TD VACCINES (1 - Tdap) 1968 PNEUMOCOCCAL VACCINE 50+ (1 of 1 - PCV) 1999 ZOSTER VACCINE (1 of 2) 1999 SCREENING FOR DIABETES 02/19/2018 COVID-19 VACCINE ( - 2023-2 5 season) 2023 Respiratory Syncytial Virus (RSV) Vaccine Pt: or over 60 yrs (1 - 1-dose 75+ series) 2024 DEPRESSION SCREENING 04/06/2024 INFLUENZA VACCINE (#1) 2024 12/05/2017 HEPATITIS B VACCINE Aged Out No longe r eligible based on patient's age to complete this topic HIB VACCINE Aged Out No longer eligi ble based on patient's age to complete this topic HPV VACCINE Aged Out No longer eligi ble based on patient's age to complete this topic MENINGOCOCCAL (Group B) VACC INE SHARED DECISION-MAKING Aged Out No longer eligibl e based on patient's age to complete this topic MENINGOCOCCAL GROUPS A/C/Y/W VACCINE Aged Out No longer eligible b ased on patient's age to complete this topic Insurance MEDICARE [facility] Address: [address] [place] [address] * Guarantor: LORENZA ACUÑA Account Type Relation to Patient Date of Phone Billing Address Personal/Family [address] [place] [address] MEDICARE [facility] * Guarantor: LORENZA ACUÑA Account Type Relation to Patient Date of Phone Billing Address Personal/Family [address] [place] [address] MEDICARE [facility] * Guarantor: POLALORENZA Account Type Relation to Patient Date of Phone Billing Address Personal/Family [address] [place] [address] MEDICARE [facility] Care Teams Pruner Relationship Specialty Start Date End Date Rip Reid DO PCP - General 02/17/18
--- OUTSIDE RECORDS SUMMARY | 2024-10-10 13:14 | XMS_ITS ---
Author Name Auto Generated, Auto Generated Organization [facility] Address [address] [place] [address] Phone [phone] Care Team Providers Care Systems Software Developer Name Role Phone Rip Reid Unavailable Functional [...]
--- OUTSIDE RECORDS SUMMARY | 2024-10-10 13:14 | XMS_ITS | Referral Summary ---
Author Organization [facility] Address [address] [place] [address] Care Team Providers Care Manager Hair Name Role Phone Rip Reid DO Primary Care Provider [phone] Encounters Date Type Department Care Team Description 09/19/2024 10:15 AM CDT Office Visit [facility] [address] 6th [address] [place] [address] Rakesh Alatorre NP Alzheimer's disease with late onset (HCC) (Primary Dx) from Last 3 Months Allergies Active Allergy Reactions Criticality Noted Date [...] be. Assessment & Plan (03/28/2024 11:46 AM SAP BUSINESS OBJECTS DEVELOPER): Continue donepezil/Aricept 10 mg daily and escitalopram/Lexapro [...] sooner if need be. 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 Social History Tobacco Use Types Packs/Day Years Used Date Smoking Tobacco: Never Tobacco Cessation:Counseling Given: Not Answered Alcohol Use Standard Drinks/Week Comments Yes 0 (1 standard drink = 0.6 oz pur e alcohol) Comments Unknown Sex and Gender Information Value Date Recorded Sex Assigned at Not on file Legal Sex Female 9:05 PM SAP BUSINESS OBJECTS DEVELOPER Gender Identity Female 02/12/2023 2:24 PM SAP BUSINESS OBJECTS DEVELOPER Sexual Orientation Straight 02/12/2023 2: 24 PM SAP BUSINESS OBJECTS DEVELOPER Last Filed Vital Signs Vital Sign Reading [...] 09/19/2024 10:05 AM CDT Plan of Treatment Not on file Insurance MEDICARE MEDICARE BLUE CROSS MEDICARE SUPPLEMENT MEDICARE [facility] MEDICARE SUPPLEMENT MEDICARE Care Teams Manager Hair Relationship Specialty Start Date End Date Rip Reid DO PCP - General 11/18/16
[2024-10-10 17:13] LABS: Alanine Aminotransferase 23 U/L (6-35); Albumin Level 4.3 g/dL (3.5-5.1); Alkaline Phosphatase 80 U/L (38-126); Anion Gap 7 mmol/L (4-12); Aspartate Amino Transferase 49 U/L (14-36); Bilirubin,Total 0.9 mg/dL (0.2-1.3); Blood Urea Nitrogen 12 mg/dL (7-17); Calcium 9.7 mg/dL (8.4-10.2); Carbon Dioxide 30 mmol/L (22-30); Chloride 103 mmol/L (98-107); Estimated Glomerular Filt Rate 55; Glucose 213 mg/dL (65-110); Potassium 4.2 mmol/L (3.4-5.0); Sodium 140 mmol/L (137-145); Total Protein 7.2 g/dL (6.3-8.2)
[2024-10-10 17:19] LABS: Hemoglobin A1C 7.3 % (<5.7)
== END 2024-10-10 13:05 | disposition home or self-care (01) ==
LOC: ANHLAB 13:06
PROVIDERS: PCP Internal Medicine; Visit Provider Nurse Practitioner
DX: E10.9 Type 1 diabetes mellitus without complications (principal); E55.9 Vitamin D deficiency, unspecified
CPT/HCPCS: 36415; 80053; 82306; 83036

== ENCOUNTER 2024-10-15 09:41 | Outpatient (CLI) | payer MEDICARE, SELFPAY ==
--- NOTE | ~2024-10-15 | DEXA_ITS ---
Bone Density Report Name: PRASANTH ESCALONA Age: 74 Sex: Female Ethnicity: White Date of : 1950 Indication: postmenopausal; screening for osteoporosis; hysterectomy; Referring Provider: BERRY VAUGHN Study: Bone densitometry was performed. Exam Date: October 15, 2024 Accession number: [id number] Bone Density: Region BMD T-score Z-score Classification AP Spine(L1-L4) 0.930 -1.1 1.4 Osteopenia Femoral Neck (Left) 0.654 -1.8 0.4 Osteopenia Total Hip (Left) 0.773 -1.4 0.4 Osteopenia Femoral Neck (Right) 0.711 -1.2 0.9 Osteopenia Total Hip (Right) 0.800 -1.2 0.6 Osteopenia Total Hip Mean 0.786 -1.3 0.5 Osteopenia World Health Organization criteria for BMD impression classify patients as: Normal (T-score at or above -1.0), Osteopenia (T-score between -1.0 and -2.5), or Osteoporosis (T-score at or below -2.5). 10-year Fracture Risk(1): Major Osteoporotic Fracture 12% Hip Fracture 2.8% Reported Risk Factors: [place] (), Neck BMD=0.654, BMI=23.5 (1) FRAX(R) Version 3.08. Fracture probability calculated for an untreated patient. Fracture probability may be lower if the patient has received treatment. Clinical Information Provided by Patient: Has used the following medications: Vitamin D, Calcium Has the following medical conditions: Hysterectomy Patient maximum height was 65 Menopause Age: 39 No regular weight bearing exercise Does not regularly consume dairy products Drinks caffeinated beverages Onset of menses at age 11 Number of children 3 Impression: The patient has low bone mass, based on the Left Femoral Neck T-score. The patient has an estimated ten-year risk of hip fracture of 2.8% and an estimated ten-year risk of major fracture of 12%, based on the WHO FRAX algorithm. Discussion: BONE DENSITY IS LOW AT ONE OR MORE SKELETAL SITES. This patient's lowest T-score is low at one or more skeletal sites. It meets the World Health Organization's (WHO) criteria for ?low bone mass? (T-score between -1.0 and -2.5). The patient's 10-year risk of fracture as calculated by FRAX is less than the threshold where pharmacological therapy is recommended by the National Osteoporosis Foundation (NOF). However, all treatment decisions require clinical judgment and consideration of individual patient factors, including patient preferences, comorbidities, previous drug use, risk factors not captured in the FRAX model (e.g., frailty, falls, vitamin D deficiency, increased bone turnover, interval significant decline in bone density) and possible under or overestimation of fracture risk by FRAX. The patient should follow a healthful lifestyle (good nutrition with adequate calcium and vitamin D, and appropriate weight-bearing exercise). Follow-Up: Consider repeating this study in 2 to 3 years to reassess this patient's status, or sooner if there is some new clinical indication. Reported by: KENNEDY on 10/15/2024 10:39:00 AM. Reviewed, dictated and finalized at location A.
--- NOTE | ~2024-10-15 | MM_ITS ---
EXAMINATION: MM screening benito BI w loulou HISTORY: Screening TECHNIQUE: Craniocaudal and mediolateral oblique 3-D tomosynthesis images were obtained and synthetic 2-D images were generated. CAD analysis was submitted and interpreted. COMPARISON: Comparison to multiple prior studies sequentially, with oldest reviewed study dated 04/2016. BREAST PARENCHYMAL COMPOSITION: Not dense: There are scattered areas of fibroglandular density. FINDINGS: There is no evidence of suspicious mass, calcification, or architectural distortion to sugg est malignancy in either breast. There has been no suspicious interval change. IMPRESSION: 1. No mammographic evidence of malignancy. 2. Recommend routine screening mammography in one year. BI-RADS Category 1: Negative Reviewed, dictated and finalized at location B.
--- OUTSIDE RECORDS SUMMARY | 2024-10-15 09:46 | XMS_ITS | Referral Summary ---
Author Organization [facility] Address [address] [place] [address] Care Team Providers Care Spice Cleaner Name Role Phone Rip Reid DO Primary Care Provider [phone] Encounters Date Type Department Care Team Description 09/19/2024 10:15 AM CDT Office Visit [facility] [address] 6th [address] [place] [address] Rakesh Alatorre NP Alzheimer's disease [...] route per prescriber's instructions. Insulin dosing requires individualizatio n. 0 vial 0 5 Active insulin detemir (LEVEMIR) 100 unit/mL injection inject by subcutaneous route per prescriber's instructions. Insulin dosing requires individualizatio n. 0 vial 0 5 Active simvastatin (ZOCOR) 10 mg tablet Take 1 tablet (10 mg total) by mouth daily 4 Active irbesartan (AVAPRO) 75 mg tablet Take 0.5 tablets (37.5 mg total) by mouth daily Active vitamin E 400 unit capsule Take 1 capsule (400 Units total) by mouth Active escitalopram (LEXAPRO) 10 mg tablet TAKE 1 TABLET(10 MG) BY MOUTH DAILY 90 tablet 3 4 Active HumaLOG 100 unit/mL vial for injection Active mecobalamin (B12 ACTIVE ORAL) Take by mouth Active CHOLECALCIFEROL , VITAMIN D3, ORAL Take by mouth Active fluticasone propionate (FLONASE) 50 mcg/actuation nasal sprayIndication s:Non-recurrent acute serous otitis media of both ears Administer 2 sprays into each nostril daily 1 each 5 Active Additional Information Patient not taking.Reported on 09/19/2024 donepeziL (ARICEPT) 10 mg tablet TAKE 1 TABLET(10 MG) BY MOUTH DAILY 30 tablet 11 5 Active Active Problems Problem Noted Date Diagnosed Date [...] be. Assessment & Plan (03/28/2024 11:46 AM FOUNDRY TECHNICIAN): Continue donepezil/Aricept 10 mg daily and escitalopram/Lexapro [...] on file Legal Sex Female 9:05 PM FOUNDRY TECHNICIAN Gender Identity Female 02/12/2023 2:24 PM FOUNDRY TECHNICIAN Sexual Orientation Straight 02/12/2023 2: 24 PM FOUNDRY TECHNICIAN Last Filed Vital Signs Vital Sign Reading [...] MEDICARE MEDICARE [employer] MEDICARE SUPPLEMENT MEDICARE [facility] MEDICARE SUPPLEMENT MEDICARE Care Teams Spice Cleaner Relationship Specialty Start Date End Date Rip Reid DO PCP - General 11/18/16
--- OUTSIDE RECORDS SUMMARY | 2024-10-15 09:46 | XMS_ITS | Clinical Summary ---
Author Organization [facility] Address [address] [place] [address] Care Team Providers Care Switchboard Operator Receptionist Name Role Phone Rip Reid DO Primary Care Provider [phone] Allergies Active Allergy Reactions Criticality Noted Date [...] be. Assessment & Plan (03/28/2024 11:46 AM HARNESS BRUSHER): Continue donepezil/Aricept 10 mg daily and escitalopram/Lexapro [...] 6 months or sooner if need be. Dupuytren's contracture 10/17/2016 Encounters Date Type Department Care Team Description 09/19/2024 10:15 AM CDT Office Visit [facility] [address] [place] [address] 6th [address] [place] [address] Rakesh Alatorre NP Alzheimer's disease with late onset (HCC) (Primary Dx) from Last 3 Months Surgical History Surgery Date Site/Laterality Comments CHOLECYSTECTOMY Cholecystectomy [place] TENDON SHEATH INCISION Hand Incision Tendon Sheath Of A Finger - (Added by TW Conv) Medical History Medical History Date Comments Hx Other Medical ; Comm ents: [facility] 09/26/2014 - Hx Other Medical hysterectomy; C omments: [facility] 09/26/2014 - Hx Other Medical breast biopsy; Comments: [facility] 09/26/2014 - Hx Other Medical hernia repair; Comments: [facility] 09/26/2014 - Hx Other Medical diabetes; Comme nts: [facility] 09/26/2014 - Hx Other Medical dyslipidemia; C omments: [facility] 09/26/2014 - Family History Medical History Relation Name Comments Parkinsonism Brother 2 Parkinson's dis ease; Cause of : Parkinson's disease Parkinsonism Father dementia with L ewy bodies. Heart attack Mother Myocardial infa rction; 09/26/2014 -patients mother also had multiple CVA's Heart disease Mother Family history of cardiac disorder - (Added by TW Conv) Diabetes Other Family history of Diabetes [...] on file Legal Sex Female 9:05 PM HARNESS BRUSHER Gender Identity Female 02/12/2023 2:24 PM HARNESS BRUSHER Sexual Orientation Straight 02/12/2023 2: 24 PM HARNESS BRUSHER Obstetrics History Last Filed Vital Signs Vital [...] Well Visit 65+ 2014 Covid-19 Vaccine (6 2023-2 5 season) 2023 09/29/2022, 12/30/2021, 01/10/2021, Additional history exists Influenza Vaccine (#1) 2024 , 12/05/2017, 01/01/2013 DTaP/Tdap/Td Vaccine (2 - Td or Tdap) 06/04/2029 06/05/2019 Zoster Vaccine Completed 02/13/2022, 11/27/2021 Insurance MEDICARE MEDICARE [facility] MEDICARE SUPPLEMENT MEDICARE [facility] MEDICARE SUPPLEMENT MEDICARE Care Teams Switchboard Operator Receptionist Relationship Specialty Start Date End Date Rip Reid DO PCP - General 11/18/16
--- OUTSIDE RECORDS SUMMARY | 2024-10-15 09:46 | XMS_ITS ---
Author Name Auto Generated, Auto Generated Organization [facility] Address [address] [place] [address] Phone [phone] Care Team Providers Care Printing Machine Operator Name Role Phone Rip Reid Unavailable Functional [...]
--- OUTSIDE RECORDS SUMMARY | 2024-10-15 09:46 | XMS_ITS | Clinical Summary ---
Author Organization [facility] Address [address] [place] [address] Care Team Providers Care Underground Utility Locator Name Role Phone JadielortizRip DO Primary Care Provider [phone] Source Comments [facility],non-owned Affiliates and Associated Physician Practices is amultiple site organization consisting of ambulatory clinics and hospital sitesin [place], [place], [place] and [place]. This disclosure is being madepursuant to the Care Everywhere program and may not contain all information available regarding this patient. Last updated 17.[employer] [facility] Allergies Active Allergy Reactions Criticality Noted Date [...] 0 02/10/2018 Active vitamin D, ergocalciferol, (DRISDOL) 04618 UNITS capsule TK 1 C PO WEEKLY [...] 66.7 kg (147 lb) 02/17/2018 10:49 AM SUPERVISOR MAIL CARRIERS Height 162.6 cm (5' 4) 02/17/2018 10:49 AM SUPERVISOR MAIL CARRIERS Body Mass Index 25.23 02/17/2018 10:49 AM SUPERVISOR MAIL CARRIERS Plan of Treatment Health Maintenance Due Date [...] age to complete this topic Insurance MEDICARE [facility] * Guarantor: LORENZA ESCALONA Account Type Relation to Patient Date of Phone Billing Address Personal/Family [address] [place] [address] [facility] * Guarantor: LORENZA ESCALONA Account Type Relation to Patient Date of Phone Billing Address Personal/Family [address] [place] [address] [facility] * Guarantor: POLALORENZA Account Type Relation to Patient Date of Phone Billing Address Personal/Family [address] [place] [address] [facility] Care Teams Underground Utility Locator Relationship Specialty Start Date End Date Rip Reid DO PCP - General 02/17/18
--- OUTSIDE RECORDS SUMMARY | 2024-10-15 09:46 | XMS_ITS ---
Author Name Auto Generated, Auto Generated Organization [facility] Address [address] [place] [address] Phone [phone] Care Team Providers Care Supervisor Car Installations Name Role Phone Rip Reid Unavailable [phone] Functional Status No Results Mental Status No [...]
== END 2024-10-15 09:42 | disposition home or self-care (01) ==
LOC: ANHIMG 09:44
PROVIDERS: PCP Internal Medicine; Visit Provider Nurse Practitioner
DX: Z12.31 Encounter for screening mammogram for malignant neoplasm of breast (principal); Z78.0 Asymptomatic menopausal state; M85.88 Other specified disorders of bone density and structure, other site; M85.852 Other specified disorders of bone density and structure, left thigh; M85.851 Other specified disorders of bone density and structure, right thigh
CPT/HCPCS: 77063; 77067; 77080

== ENCOUNTER 2024-11-17 08:33 | Outpatient (CLI) | payer MEDICARE, SELFPAY ==
[2024-12-12 14:31] VITALS: BMI 22.6
--- NOTE | 2024-12-12 14:31 | WPDHOMESLEEP ---
Sleep Study - Home Unattended Date of Study: 11/17/24 Ordering Provider: Yaneth Brown NP Interpreting Provider: Leonor Cottrell, DO Home Sleep Study Type: Watch PAT Height: 1.68 m Weight: 63.503 kg Body Mass Index: 22.6 Neck Circumference (inches): 14 Centre: 8 Reason for Sleep Study snoring, daytime hypersomnia Sleep History The patient is a 74-year-old female that had a sleep study ordered for evaluation of sleep apnea. The patient admits to snoring loudly, excessive daytime sleepiness, interruptions in breathing while asleep, trouble falling asleep and trouble staying asleep. She does choke or gasp at night. She denies having trouble breathing on her back. She denies morning headaches. She does have a dry or sore mouth / throat in the morning. She denies nocturnal heartburn. She denies nocturia. She does have trouble falling and staying asleep. She does have difficulty returning to sleep if she wakes up throughout the night. She does use hypnotics or sedatives. She denies feeling anxious about sleep. She does feel tired or sleepy during the day. She does feel tired in the morning. She denies having the urge to fall asleep during the day. She does feel drowsy while driving. She denies sleep paralysis, cataplexy and hypnagogic/ hypnopompic hallucinations. She does clench or grind her teeth. She denies kicking or jerking her legs excessively she does have a restless feeling in her legs that cause an urge to move her legs. The restless feeling does not worsen with rest but it does get better with activity. It occurs in the evening. It does not cause a disturbance in her sleep. She goes to bed at 9:00 p.m. every night. It takes her 2 hours to fall asleep. She gets 6 hours of sleep on work days and 6-1/2 hours on her days off. Her sleep is a little more restorative on days off. She denies taking any planned naps. she denies dream enactment behavior. She denies sleep walking. She consumes 1-2 cups of caffeinated beverage per day. She consumes 2 alcoholic beverages 1-2 nights per week. She denies tobacco use. She does not exercise on a regular basis. [facility] Past Medical History Medical History Adenomatous colon polyp Alzheimer dementia Squamous cell carcinoma skin of arm Depression Shingles Kidney stones Insulin dependent type 2 diabetes mellitus Hyperlipidemia Syncope Hypertension Surgical History Surgical History History of benign breast biopsy History of abdominoplasty Status post trigger finger release History of 3 sections History of hysterectomy History of cardiac catheterization (2014) Unremarkable per patient report. History of tonsillectomy History of squamous cell carcinoma excision Neck. History of cataract extraction with lens replacement History of removal of ureteral stent History of cystoscopy History of cholecystectomy History of nephrolithotomy with removal of calculi Family History Family History Mother Hypertension Cerebrovascular accident Father Family history of Parkinson's disease Family history of coronary artery disease Social History Social History Social History: Surrogate decision maker: Amaya Acuña, daughter. Code status: Full code. Smoking status: Never smoker Second hand tobacco smoke exposure: No Alcohol intake: current Drinks per week: 3 Alcohol use details: Mixed drinks or wine. Substance use: never Substance use type: does not use Lack of Transportation: No Lack of Food: Never True Current Housing: I Have Housing Concerned About Future Housing: No Difficulty Paying Gas/Electric Bills: No Difficulty Paying for Meds: No Currently Unemployed: No Education: Associate Degree Difficulty w/ Childcare or Family Care: No Living arrangements: with family Additional living arrangements comments: . Three children. Independent living at [place]. 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 Spiritual care concerns: No Medications Home Medications ?Medication ?Instructions ?Recorded ?Confirmed ?Type cholecalciferol (vitamin D3) 125 125 mcg PO DAILY 04/01/23 10/19/24 History mcg (5,000 unit) capsule donepezil 5 mg tablet 10 mg PO DAILY 04/01/23 10/19/24 History mecobalamin (vitamin B12) 5,000 5,000 mcg PO DAILY 04/01/23 10/19/24 History mcg chewable tablet escitalopram oxalate 10 mg tablet 10 mg PO DAILY 01/11/24 10/19/24 History vitamin E (dl, acetate) 180 mg 180 mg PO DAILY 01/11/24 10/19/24 History (400 unit) capsule simvastatin 10 mg tablet 10 mg PO DAILY #90 tabs 09/12/24 10/19/24 Rx insulin lispro 100 unit/mL 1 sliding scale dose subcut 10/14/24 10/19/24 Rx subcutaneous solution (Humalog USEASDIRECTD #90 mL U-100 Insulin) Sleep Procedure The sleep study was completed using MarquiT a technically adequate device with seven channels: peripheral arterial tone, actigraphy, body position, snore, respiratory movement, pulse oximetry, sleep staging, and heart rate. Prior to using the device, the patient received verbal and written instructions for its application and was provided with the help desk phone number for additional telephonic instruction with 24-hour availability of qualified personnel to answer questions. The study was scored using CMS guidelines. Sleep Architecture The total recording time is 7 hrs, 12 min. The total sleep time is 5 hrs, 23 min. Sleep latency is 24 minutes. REM latency is 101 minutes. The patient had 13 episodes of waking. Sleep architecture shows 18.2% deep sleep, 47.0% light sleep, and (as % Total Sleep Time) showed NREM (Light 47.0%; Deep 18.2%), and a 34.8% stage REM. The patient spent 44.5% of total sleep time in the supine position. Sleep efficiency was 74.77. Respiratory Analysis The overall AHI (pAHI 4%:) is 6.8.The overall AHI (pAHI 3%:) is 11.3. The central AHI is 0.8. The AHI was 11.6 in NREM and 10.7 in REM sleep. The AHI was 16.0 in Supine and 7.7 in Non-supine sleep. Percent of Romero Claudio respirations is 0.0. Oximetry Data The oxygen desaturation index (BREE 4%:) is 4.5. The mean saturation is 94%, and the lowest saturation is 85%. Time spent with saturation < 88% is 0.4 minutes. Snoring Profile Snoring average intensity is 41 dB. The patient snored above 45 decibels for 6.3 minutes, 1.9% of sleep time. Cardiac Profile The average pulse rate is 67 beats per minutes. The lowest pulse rate is 55 bpm. The highest pulse rate reported is 101 bpm. Atrial fibrillation was not detected. Premature beats occur <0.1 per minute. Assessment and Plan Assessment and Plan (1) HOSSEIN (obstructive sleep apnea): Code(s): G47.33 - Obstructive sleep apnea (adult) (pediatric) Status: Acute Assessment and Plan: The patient had an overall AHI of 6.8 with desaturation down to 85%. This is consistent with mild sleep apnea. Due to the patient's diabetes, she qualifies for treatment. I recommend that the patient have a CPAP Titration study with the use of a hypnotic to ensure we obtain enough sleep data and find an optimal pressure setting. Data The data obtained during this sleep study is adequate for interpretation. Certification This sleep study has been reviewed by a board certified sleep medicine physician.
== END 2024-11-18 09:39 | disposition home or self-care (01) ==
LOC: ANHCSM 08:36
PROVIDERS: PCP Internal Medicine; Visit Provider Nurse Practitioner
DX: G47.9 Sleep disorder, unspecified (principal); G47.33 Obstructive sleep apnea (adult) (pediatric)
CPT/HCPCS: 95800

== ENCOUNTER 2025-02-02 07:59 | Outpatient (CLI) | payer MEDICARE, SELFPAY ==
--- OUTSIDE RECORDS SUMMARY | 2025-02-02 08:04 | XMS_ITS | Clinical Summary ---
Author Organization [facility] Address [address] [place] [address] Care Team Providers Care Skip Hoist Engineer Name Role Phone Jadielortiz Rip Yara NARANJO Primary Care Provider [phone] Source Comments [facility],non-owned Affiliates and Associated Physician Practices is amultiple site organization consisting of ambulatory clinics and hospital sitesin [place], [place], [place] and [place]. This disclosure is being madepursuant to the Care Everywhere program and may not contain all information available regarding this patient. Last updated 17.[employer] [facility] Allergies Active Allergy Reactions Criticality Noted Date [...] 0 02/10/2018 Active vitamin D, ergocalciferol, (DRISDOL) 12180 UNITS capsule TK 1 C PO WEEKLY [...] 66.7 kg (147 lb) 02/17/2018 10:49 AM KENNEL WORKER Height 162.6 cm (5' 4) 02/17/2018 10:49 AM KENNEL WORKER Body Mass Index 25.23 02/17/2018 10:49 AM KENNEL WORKER Plan of Treatment Health Maintenance Due Date [...] of 2) 1999 SCREENING FOR DIABETES 02/19/2018 Respiratory Syncytial Virus (RSV) Vaccine Pt: or over 60 yrs (1 - 1-dose 75+ series) 2024 DEPRESSION SCREENING 04/06/2024 COVID-19 VACCINE ( - 2023-2 5 season) 2024 INFLUENZA VACCINE (#1) 2024 12/05/2017 HEPATITIS B [...] to complete this topic Insurance MEDICARE [facility] * Guarantor: LORENZA ACUÑA Account Type Relation to Patient Date of Phone Billing Address Personal/Family [address] [place] [address] MEDICARE [facility] * Guarantor: LORENZA ACUÑA Account Type Relation to Patient Date of Phone Billing Address Personal/Family [address] [place] [address] MEDICARE [facility] * Guarantor: POLALORENZA Account Type Relation to Patient Date of Phone Billing Address Personal/Family [address] [place] [address] MEDICARE [facility] Care Teams Skip Hoist Engineer Relationship Specialty Start Date End Date Rip Reid DO PCP - General 02/17/18
--- OUTSIDE RECORDS SUMMARY | 2025-02-02 08:04 | XMS_ITS | Clinical Summary ---
Author Organization [facility] Address [address] [place] [address] Care Team Providers Care Line Haul Driver Name Role Phone Rip Reid DO Primary Care Provider Allergies Active Allergy Reactions Criticality Noted Date [...] capsule (400 Units total) by mouth Active HumaLOG 100 unit/mL vial for injection Active mecobalamin (B12 ACTIVE ORAL) Take by mouth Active CHOLECALCIFEROL , VITAMIN D3, ORAL Take by mouth Active fluticasone propionate (FLONASE) 50 mcg/actuation nasal sprayIndication s:Non-recurrent acute serous otitis media of both ears Administer 2 sprays into each nostril daily 1 each 5 Active Additional Information Patient not taking.Reported on 09/19/2024 escitalopram (LEXAPRO) 10 mg tablet TAKE 1 TABLET(10 MG) BY MOUTH DAILY 90 tablet 3 5 Active donepeziL (ARICEPT) 10 mg tablet TAKE 1 [...] be. Assessment & Plan (03/28/2024 11:46 AM SURVEY RESEARCH MANAGER): Continue donepezil/Aricept 10 mg daily and escitalopram/Lexapro [...] sooner if need be. Dupuytren's contracture 10/17/2016 Surgical History Surgery Date Site/Laterality Comments CHOLECYSTECTOMY Cholecystectomy [place] TENDON SHEATH INCISION Hand Incision Tendon Sheath Of A Finger - (Added by TW Conv) Medical History Medical History Date Comments Hx Other Medical ; Comm ents: [facility] 09/26/2014 - Hx Other Medical hysterectomy; C omments: [facility] 09/26/2014 - Hx Other Medical breast biopsy; Comments: [facility] 09/26/2014 - Hx Other Medical hernia repair; Comments: [facility] 09/26/2014 - Hx Other Medical diabetes; Comme nts: [facility] 09/26/2014 - Hx Other Medical dyslipidemia; C omments: [facility] 09/26/2014 - Family History Medical [...] on file Legal Sex Female 9:05 PM SURVEY RESEARCH MANAGER Gender Identity Female 02/12/2023 2:24 PM SURVEY RESEARCH MANAGER Sexual Orientation Straight 02/12/2023 2: 24 PM SURVEY RESEARCH MANAGER Obstetrics History Last Filed Vital Signs Vital [...] Visit 65+ 2014 Covid-19 Vaccine (6 - 2024-2 6 season) 2024 09/29/2022, 12/30/2021, 01/10/2021, Additional history exists Influenza Vaccine (#1) 2024 , 12/05/2017, 01/01/2013 DTaP/Tdap/Td Vaccine (2 - Td or Tdap) 06/04/2029 06/05/2019 Zoster Vaccine Completed 02/13/2022, 11/27/2021 Insurance MEDICARE MEDICARE [facility] MEDICARE SUPPLEMENT MEDICARE [facility] MEDICARE SUPPLEMENT MEDICARE Care Teams Line Haul Driver Relationship Specialty Start Date End Date Rip Reid DO PCP - General 11/18/16
--- NOTE | 2025-02-23 09:59 | WPDSLEEPSTUD ---
Sleep Study Date of Study: 02/02/25 Ordering Provider: Yaneth Brown APRN Interpreting Physician: Karine Wilkes MD Sleep Study Type: CPAP Titration Height: 1.68 m Weight: 63.503 kg Body Mass Index: 22.6 Neck Circumference (inches): 15 [place]: 8 Reason for Sleep Study *11/17/2024 HST with mild obstructive sleep apnea. She returns for a full night titration. Sleep History This history is from her 11/17/2024 sleep questionnaire. The patient is a 74-year-old female that had a sleep study ordered for evaluation of sleep apnea. The patient admits to snoring loudly, excessive daytime sleepiness, interruptions in breathing while asleep, trouble falling asleep and trouble staying asleep. She does choke or gasp at night. She denies having trouble breathing on her back. She denies morning headaches. She does have a dry or sore mouth / throat in the morning. She denies nocturnal heartburn. She denies nocturia. She does have trouble falling and staying asleep. She does have difficulty returning to sleep if she wakes up throughout the night. She does use hypnotics or sedatives. She denies feeling anxious about sleep. She does feel tired or sleepy during the day. She does feel tired in the morning. She denies having the urge to fall asleep during the day. She does feel drowsy while driving. She denies sleep paralysis, cataplexy and hypnagogic/ hypnopompic hallucinations. She does clench or grind her teeth. She denies kicking or jerking her legs excessively she does have a restless feeling in her legs that cause an urge to move her legs. The restless feeling does not worsen with rest but it does get better with activity. It occurs in the evening. It does not cause a disturbance in her sleep. She goes to bed at 9:00 p.m. every night. It takes her 2 hours to fall asleep. She gets 6 hours of sleep on work days and 6-1/2 hours on her days off. Her sleep is a little more restorative on days off. She denies taking any planned naps. she denies dream enactment behavior. She denies sleep walking. She consumes 1-2 cups of caffeinated beverage per day. She consumes 2 alcoholic beverages 1-2 nights per week. She denies tobacco use. She does not exercise on a regular basis. [facility]LY [facility] Past Medical History Medical History HOSSEIN (obstructive sleep apnea) Adenomatous colon polyp Alzheimer dementia Squamous cell carcinoma skin of arm Depression Shingles Kidney stones Insulin dependent type 2 diabetes mellitus Hyperlipidemia Syncope Hypertension Surgical History Surgical History History of benign breast biopsy History of abdominoplasty Status post trigger finger release History of 3 sections History of hysterectomy History of cardiac catheterization (2014) Unremarkable per patient report. History of tonsillectomy History of squamous cell carcinoma excision Neck. History of cataract extraction with lens replacement History of removal of ureteral stent History of cystoscopy History of cholecystectomy History of nephrolithotomy with removal of calculi Family History Family History Mother Hypertension Cerebrovascular accident Father Family history of Parkinson's disease Family history of coronary artery disease Social History Social History Social History: Surrogate decision maker: Amaya Acuña, daughter. Code status: Full code. Smoking status: Never smoker Second hand tobacco smoke exposure: No Alcohol intake: current Drinks per week: 3 Alcohol use details: Mixed drinks or wine. Substance use: never Substance use type: does not use Lack of Transportation: No Lack of Food: Never True Current Housing: I Have Housing Concerned About Future Housing: No Difficulty Paying Gas/Electric Bills: No Difficulty Paying for Meds: No Currently Unemployed: No Education: Associate Degree Difficulty w/ Childcare or Family Care: No Living arrangements: with family Additional living arrangements comments: . Three children. Independent living at [place]. 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 Spiritual care concerns: No Medications Home Medications ?Medication ?Instructions ?Recorded ?Confirmed ?Type cholecalciferol (vitamin D3) 125 125 mcg PO DAILY 04/01/23 02/07/25 History mcg (5,000 unit) capsule donepezil 5 mg tablet 10 mg PO DAILY 04/01/23 02/07/25 History mecobalamin (vitamin B12) 5,000 5,000 mcg PO DAILY 04/01/23 02/07/25 History mcg chewable tablet escitalopram oxalate 10 mg tablet 10 mg PO DAILY 01/11/24 02/07/25 History vitamin E (dl, acetate) 180 mg 180 mg PO DAILY 01/11/24 02/07/25 History (400 unit) capsule insulin lispro 100 unit/mL 1 sliding scale dose subcut 02/07/25 02/07/25 Rx subcutaneous solution (Humalog USEASDIRECTD #90 mL U-100 Insulin) simvastatin 20 mg tablet 20 mg PO DAILY #90 tabs 02/13/25 Rx Sleep Procedure A full CPAP polysomnogram using the NoteSick multi-channel system recorded the standard physiologic parameters including EEG, EOG, submentalis EMG, anterior tibialis EMG, EKG, body position, nasal and oral airflow using nasal pressure sensor and thermistor. Respiratory parameters of chest and abdominal movements were recorded with Respiratory Inductance Plethysmography belts. Oxygen saturation was recorded by pulse oximetry. Video monitoring was also performed. Sleep stages, periodic limb movements, and EEG arousals were scored in 30 second epochs according to the criteria of the AASM Scoring Manual. The Apnea-Hypopnea Index was calculated using [facility] guidelines for definition of hypopnea while scoring respiratory events. Her stayed overnight as her caregiver with her dementia. Patient had difficulty understanding why she had mask and wires attached; removed CPAP twice. After she fell asleep, she tolerated the titraiton well. The patient was started on CPAP using a ResMed size Small AirTouch F20 full face mask with an initial pressure of CPAP 4 cm titrated to 7 cm, with the emergence of central apneas when the pressure was 8 cm. She was switched to BiPAP / for the last 30 minutes of the night for comparison. While she was on BiPAP, she had Romero Claudio breathing. She had snoring throughout the night. The optimal pressure is CPAP 7 cm. At 7 cm, she spent 79.5 minutes in bed, 29.5 minutes awake, 46 minutes in NREM, and 4 minutes in REM. Sleep efficiency was 62.9%, residual AHI was 12 with the majority of the events central apneas. These treatment emergent centrals will resolve on regular treatment. The lowest saturation was 90%. Sleep Architecture The total recording time was 504.7 minutes. The total sleep time was 384.0 minutes. Sleep latency was 8.1 minutes. REM latency was 300.5 minutes. Sleep efficiency was 76.1%. The patient had 47 awakenings for an awakening index of 7.3. Wake after Sleep Onset time was 112.5 minutes. The patient spent 36.0 minutes, 9.4% of total sleep time in Stage N1. The patient spent 250.0 minutes, 65.1% in Stage N2. The patient spent 55.5 minutes, 14.5% in Stage N3. The patient spent 42.5 minutes, 11.1% in Stage REM. Respiratory Analysis The patient had 15 hypopneas, 2 obstructive apneas, 2 mixed apneas, and 41 central apneas for an overall Apnea Hypopnea Index of 9.4 events per hour. The REM Apnea Hypopnea Index was 2.8. The NREM Apnea Hypopnea Index was 10.2. The patient had a Central Apnea Hypopnea Index of 6.4. There were no Respiratory Effort Related Arousals. The Respiratory Disturbance Index is 11.1 events per hour. There was Romero-Claudio Respirations noted when she was on BiPAP 11/07 at the end of the study. Arousals There were 126 total arousals for an arousal index of 19.7. There were 79 spontaneous arousals for an index of 12.3. There were 16 arousals due to respiratory events for an index of 2.5. There were 15 arousals due to periodic limb movements for an index of 2.3. There were 16 arousals due to isolated limb movements for an index of 2.5. Periodic Limb Movements The patient had 40 isolated limb movements with an index of 6.3. The patient had 69 periodic limb movements with index of 10.8. Patient had a total of 109 limb movements with a total limb movement index of 17.0. Oximetry Data The patient had an average oxygen saturation of 93% in sleep with a minimum oxygen saturation of 87% and a maximum oxygen saturation of 100%. The patient had 18 oxygen desaturations that were 4% or greater resulting in an Oxygen Desaturation Index of 3.0. The patient spent 2.1 minutes, 0.4% of total sleep time with an oxygen saturation below 88%. Snoring Profile Snoring persisted during the study. Cardiac Profile The EKG showed normal sinus rhythm. The patient had an average pulse rate of 61 bpm with a minimum pulse rate of 52 bpm and a maximum pulse rate of 140 bpm. No arrhythmias noted. EEG Profile Unremarkable, no evidence of seizures. Assessment and Plan Assessment and Plan (1) HOSSEIN (obstructive sleep apnea): Code(s): G47.33 - Obstructive sleep apnea (adult) (pediatric) Status: Acute Assessment and Plan: This full night CPAP titration on shows an optimal pressure is CPAP 7 cm using a small ResMed AirTocuh F20 fill face mask and heated humidity. At 7 cm, she spent 79.5 minutes in bed, 29.5 minutes awake, 46 minutes in NREM, and 4 minutes in REM which was in the supine position. Sleep efficiency was 62.9%, residual AHI was 12 with the majority of the events central apneas. These treatment emergent centrals will resolve on regular treatment. The lowest saturation was 90%. The patient should be prescribed this ResMed equipment as well as tubing, filters and reservoir. This should be used with all episodes of sleep. Compliance should be reviewed within 31-90 days of starting therapy for usage greater than 4 hours per night greater than 70% of the nights. The patient should be asked about symptoms such as excessive daytime sleepiness, quality of sleep, decreased nocturia, increased mental functioning such as memory, mood, and concentration. Data The data obtained during this sleep study is adequate for interpretation. Certification This sleep study has been reviewed by a board certified sleep medicine physician.
[2025-02-23 11:26] VITALS: BMI 22.6
== END 2025-02-03 06:56 | disposition home or self-care (01) ==
PROVIDERS: PCP Internal Medicine; Visit Provider Nurse Practitioner
DX: G47.33 Obstructive sleep apnea (adult) (pediatric) (principal)
CPT/HCPCS: 95811

== ENCOUNTER 2025-02-13 09:15 | Outpatient (CLI) | payer MEDICARE, SELFPAY ==
[2025-02-13 09:31] LABS: Hematocrit 46.2 % (37.0-47.0); Hemoglobin 15.8 g/dL (12.0-15.0); Immature Granulocyte Percent A 0.1 % (0-0.5); Lymphocytes Absolute Auto 2.11 K/mm3 (0.9-3.2); Mean Corpuscular HGB Conc 34.2 g/dl (32-36); Mean Corpuscular Hemoglobin 31.3 pg (26-34); Mean Corpuscular Volume 91.5 fl (80-100); Nucleated Red Blood Cells Absolute Auto 0.000 K/mm3 (0.0-0.012); Nucleated Red Blood Cells Perc 0.0 % (0.0-0.2); Platelet Count Result 228 k/mm3 (150-375); Red Blood Count 5.05 M/mm3 (4.2-5.4); White Blood Count 8.7 K/mm3 (4.5-10.0)
--- OUTSIDE RECORDS SUMMARY | 2025-02-13 09:45 | XMS_ITS | Clinical Summary ---
Author Organization [facility] Address [address] [place] [address] Care Team Providers Care Bingo Floater Name Role Phone Rip Reid DO Primary [...] be. Assessment & Plan (03/28/2024 11:46 AM TEMPLATE FITTER): Continue donepezil/Aricept 10 mg daily and escitalopram/Lexapro [...] History Surgery Date Site/Laterality Comments CHOLECYSTECTOMY Cholecystectomy CT TENDON SHEATH INCISION Hand Incision Tendon Sheath Of A Finger - (Added by TW Conv) Medical History Medical History Date Comments Hx Other Medical ; Comm ents: [facility] 09/26/2014 - Hx Other Medical hysterectomy; C omments: [facility] 09/26/2014 - Hx Other Medical breast biopsy; Comments: [facility] 09/26/2014 - Hx Other Medical hernia repair; Comments: [facility] 09/26/2014 - Hx Other Medical diabetes; Comme nts: [facility] 09/26/2014 - Hx Other Medical dyslipidemia; C omments: [facility] 09/26/2014 - Family History [...] on file Legal Sex Female 9:05 PM TEMPLATE FITTER Gender Identity Female 02/12/2023 2:24 PM TEMPLATE FITTER Sexual Orientation Straight 02/12/2023 2: 24 PM TEMPLATE FITTER Last Filed Vital Signs Vital Sign Reading [...] Vaccine Completed 02/13/2022, 11/27/2021 Insurance MEDICARE MEDICARE [facility] MEDICARE SUPPLEMENT MEDICARE [facility] MEDICARE SUPPLEMENT Member Subscriber Plan / Payer ( fective 2014-Present) Name:Lorenza Acuña Relation to Subscriber:Self Name:Lorenza Acuña Payer ID:[id number] Type:COMMERCIAL Address: [place] [id number] MEDICARE Care Teams Bingo Floater Relationship Specialty Start Date End Date Rip Reid DO PCP - General 11/18/16
--- OUTSIDE RECORDS SUMMARY | 2025-02-13 09:45 | XMS_ITS | Clinical Summary ---
Author Organization [facility] Address [address] [address] Care Team Providers Care Stone Rougher Name Role Phone Jadielortiz Rip Yara NARANJO Primary Care Provider [phone] Source Comments [facility],non-owned Affiliates and Associated Physician Practices is amultiple site organization consisting of ambulatory clinics and hospital sitesin [place], [place], [place] and [place]. This disclosure is being madepursuant to the Care Everywhere program and may not contain all information available regarding this patient. Last updated 17.[facility] Allergies Active Allergy Reactions Criticality Noted Date [...] 0 02/10/2018 Active vitamin D, ergocalciferol, (DRISDOL) 05214 UNITS capsule TK 1 C PO WEEKLY [...] 66.7 kg (147 lb) 02/17/2018 10:49 AM BACK FILLER OPERATOR Height 162.6 cm (5' 4) 02/17/2018 10:49 AM BACK FILLER OPERATOR Body Mass Index 25.23 02/17/2018 10:49 AM BACK FILLER OPERATOR Plan of Treatment Health Maintenance Due Date [...] age to complete this topic Insurance MEDICARE [facility] * Guarantor: LORENZA ACUÑA Account Type Relation to Patient Date of Phone Billing Address Personal/Family [address] [place] [address] MEDICARE [facility] * Guarantor: LORENZA ACUÑA Account Type Relation to Patient Date of Phone Billing Address Personal/Family [address] [place] [address] MEDICARE [facility] * Guarantor: POLALORENZA Account Type Relation to Patient Date of Phone Billing Address Personal/Family [address] [place] [address] MEDICARE [facility] Care Teams Stone Rougher Relationship Specialty Start Date End Date Rip Reid DO PCP - General 02/17/18
[2025-02-13 10:00] LABS: Hemoglobin A1C 7.6 % (<5.7)
[2025-02-13 10:05] LABS: Alanine Aminotransferase 20 U/L (6-35); Albumin Level 4.6 g/dL (3.5-5.1); Alkaline Phosphatase 107 U/L (38-126); Anion Gap 9 mmol/L (4-12); Aspartate Amino Transferase 29 U/L (14-36); Bilirubin,Total 1.3 mg/dL (0.2-1.3); Blood Urea Nitrogen 9 mg/dL (7-17); Calcium 9.7 mg/dL (8.4-10.2); Carbon Dioxide 30 mmol/L (22-30); Chloride 101 mmol/L (98-107); Cholesterol 234 mg/dL (0-200); Estimated Glomerular Filt Rate 57; Glucose 226 mg/dL (65-110); HDL Direct 58 mg/dL; Potassium 3.7 mmol/L (3.4-5.0); Sodium 140 mmol/L (137-145); Total Protein 7.9 g/dL (6.3-8.2); Triglycerides 285 mg/dL (<150)
== END 2025-02-13 09:16 | disposition home or self-care (01) ==
PROVIDERS: PCP Nurse Practitioner; Visit Provider Nurse Practitioner
DX: E10.9 Type 1 diabetes mellitus without complications (principal); E55.9 Vitamin D deficiency, unspecified
CPT/HCPCS: 36415; 80053; 80061; 82306; 83036; 85025